=== PATIENT | male | born 1940 | race Caucasian/White ===

== ENCOUNTER 2020-07-24 20:55 | Observation (INO) | payer OTHER ==
[2020-07-24 22:47] LABS: Absolute Lymphocytes (CBC) 1.2 K/uL (0.7-4.9); Basophils % 0.6 % (0-1.3); Hematocrit 43.7 % (39.6-49.0); Lymphocytes % 20.4 % (15.3-44.8); MPV 10.2 fL (7.6-11.3); Protime INR 1.01; RBC Red Blood Cell Count 4.83 M/uL (4.33-5.43)
[2020-07-24 23:04] LABS: ALT/SGPT 33 U/L (12-78); AST/SGOT 26 U/L (15-37); Albumin 3.8 g/dL (3.4-5.0); Alkaline Phosphatase 116 U/L (45-117); BUN Blood Urea Nitrogen 31 mg/dL (7-18); Bicarbonate 28 mmol/L (21-32); Bilirubin Direct 0.2 mg/dL (0-0.2); Bilirubin Total 0.7 mg/dL (0.2-1.0); Glucose Level 114 mg/dL (74-106); Magnesium 2.3 mg/dL (1.8-2.4); NT PRO-BNP 402 pg/mL (<450); Potassium 4.4 mmol/L (3.5-5.1); Protein, Total 7.5 g/dL (6.4-8.2); Sodium Level 141 mmol/L (136-145); Troponin (Emerg Dept Use Only) < 0.02 ng/mL (0.0-0.045)
--- NOTE | 2020-07-25 00:14 | ER ---
Nurse's Notes [facility] Name: Sea Ch Age: 79 yrs Sex: Male : 1940 Arrival Date: 07/24/2020 Time: 20:56 Bed 6 Private MD: Diagnosis: Uncontrolled Hypertension;Confusion Presentation: 07/24 21:01 Chief complaint: Patient states: BP elevated above 200 today. Taking BP meds as ll1 prescribed. Denies pain, no fever. Coronavirus screen: Client denies travel out of the [place] in the last 14 days. Ebola Screen: Patient denies travel to an Ebola-affected area in the 21 days before illness onset. Initial Sepsis Screen: Does the patient meet any 2 criteria? No. Patient's initial sepsis screen is negative. Does the patient have a suspected source of infection? No. Patient's initial sepsis screen is negative. Risk Assessment: Do you want to hurt yourself or someone else? Patient reports no desire to harm self or others. Onset of symptoms was July 24, 2020. 21:01 Method Of Arrival: Ambulatory ll1 21:01 Acuity: JANIE 2 ll1 Historical: - Allergies: 21:03 No Known Allergies; ll1 - PMHx: 21:03 Hypertension; Prostate Cancer; ll1 - PSHx: 21:03 Prostatectomy; ll1 - Immunization history:: Adult Immunizations up to date. - Social history:: Smoking status: Patient denies any tobacco usage or history of. Screenin:25 Abuse screen: Denies threats or abuse. Nutritional screening: No deficits noted. wh Tuberculosis screening: No symptoms or risk factors identified. Fall Risk None identified. 21:30 VAN Screening: Arm Drift: Patient shows no arm weakness. Visual Disturbance: No visual wh disturbance noted. Aphasia: No aphasia noted. Neglect: No neglect noted. Assessment: 21:15 General: Appears in no apparent distress. Behavior is calm, cooperative. Pain: Denies wh pain. Neuro: Level of Consciousness is awake, alert, obeys commands, Oriented to person, place, time, situation, Rubber Worker are equal bilaterally Moves all extremities. Gait is steady, Speech is normal, Facial symmetry appears normal, Reports high blood pressure. Cardiovascular: Heart tones S1 S2. Respiratory: Airway is patent Respiratory effort is even, unlabored, Respiratory pattern is regular, symmetrical, Breath sounds are clear bilaterally. GI: Abdomen is flat, non-distended. : No signs and/or symptoms were reported regarding the genitourinary system. EENT: No signs and/or symptoms were reported regarding the EENT system. Derm: Skin is intact, is healthy with good turgor, Skin is pink, warm \T\ dry. normal. Musculoskeletal: Circulation, motion, and sensation intact. 21:45 Reassessment: PT is alert and oriented x4 but sometimes confuses use of words but is wh able to pass NIH scale with no deficits. 22:30 Reassessment: Patient appears in no apparent distress at this time. No changes from previously documented assessment. Patient and/or family updated on plan of care and expected duration. Pain level reassessed. Patient is alert, oriented x 3, equal unlabored respirations, skin warm/dry/pink. 23:52 Reassessment: Patient appears in no apparent distress at this time. Patient and/or wh family updated on plan of care and expected duration. Pain level reassessed. Patient is alert, oriented x 3, equal unlabored respirations, skin warm/dry/pink. 07/25 00:30 Reassessment: MD at bedside explained to PT need for admit, Pt adamant of signing out, Charge nurse notified and at bedside explaining to Pt course of action. 00:56 Reassessment: pt signed AMA form and stated he was going to go home, Dr. Brush and kenzie Arshad, RN at bedside, notified [place], spoke with [place], will send someone for wellness check. Vital Signs: 07/24 21:01 BP 215 / 97; Pulse 66; Resp 17; Temp 97.9; Pulse Ox 100% ; Weight 74.84 kg; Height 5 ll1 ft. 11 in. (180.34 cm); Pain 0/10; 21:30 BP 181 / 97; Pulse 63; Resp 18; Pulse Ox 99% on R/A; 22:30 BP 165 / 87; Pulse 56; Resp 18; Pulse Ox 100% on R/A; wh 23:30 BP 159 / 85; Pulse 68; Resp 18; Pulse Ox 98% on R/A; 07/25 00:30 BP 175 / 78; Pulse 62; Resp 18; Pulse Ox 98% on R/A; 07/24 21:01 Body Mass Index 23.01 (74.84 kg, 180.34 cm) ll1 NIH Stroke Scale Scores: 07/24 21:30 NIHSS Score: 0 ED Course: 20:56 Patient arrived in ED. bp1 21:03 Triage completed. ll1 21:03 Arm band placed on Patient placed in an exam room, on a stretcher. 1 21:09 Jeancarlos Estevez, RN is Primary Nurse. 21:12 Win Young MD is Attending Physician. 7 21:30 Patient has correct armband on for positive identification. Bed in low position. Call light in reach. Side rails up X 1. rivet machine operator on. Pulse ox on. NIBP on. 21:35 Inserted saline lock: 20 gauge in right antecubital area, using aseptic technique. Blood collected. 22:14 CT Head Brain wo Cont In Process Unspecified. EDMS 22:40 XRAY Chest (1 view) In Process Unspecified. EDMS 07/25 00:12 Tommie Brush MD is Hospitalizing Provider. [facility] 00:52 No provider procedures requiring assistance completed. IV discontinued, intact, bleeding controlled, No redness/swelling at site. Administered Medications: No medications were administered Outcome: 00:13 Decision to Hospitalize by Provider. [facility] 00:52 AMA AMA form signed 00:52 Condition: stable 00:52 Instructed on the need for admit. 01:10 Patient left the ED. NIH Stroke Scale - NIH Stroke Score Date: 07/24/2020 Time: 21:30 Total Score = 0 1a. Level of Consciousness (LOC) - 0(Alert) 1b. Level of Consciousness (LOC) (Year \T\ Age) - 0(Both) 1c. LOC Commands (Open \T\ Closes Eyes/Manager [employer]) - 0(Both) 2. Best Gaze (Lateral Gaze Paresis) - 0(Normal) 3. Visual Field Loss - 0(No visual loss) 4. Facial Palsy - 0(Normal) 5a. Left Arm: Motor (10-second hold) - 0(No drift) 5b. Right Arm: Motor (10-second hold) - 0(No drift) 6a. Left Leg: Motor (5-second hold - always test supine) - 0(No drift) 6b. Right Leg: Motor (5-second hold - always test supine) - 0(No drift) 7. Limb Ataxia (finger/nose \T\ heel/perry - test with eyes open) - 0(Absent) 8. Sensory Loss (pinprick arms/legs/face) - 0(Normal) 9. Best Language: Aphasia (description/naming/reading) - 0(No aphasia) 10. Dysarthria (speech clarity - read or repeat words) - 0(Normal) 11. Extinction and Inattention (visual/tactile/auditory/spatial/personal) - 0(No abnormality) Initials: Signatures: Dispatcher [employer] Jon Krueger, RN Jeancarlos Ewing, RN Katelyn Oconnell RN RN ll1 Ashley Solis Maurice, MD MD 7 Corrections: (The following items were deleted from the chart) 00:54 07/24 21:45 Reassessment: PT sometimes confuses use of words but is able to wh pass NIH scale with no deficits. 07/25 01:01 00:56 Reassessment: pt signed AMA form and stated he was going to go home, Dr. kenzie Brush and Jeancarlos, RN at bedside, notified [place], will send someone for wellness check em
--- NOTE | 2020-07-25 00:14 | EDPHYS ---
Physician Documentation [facility] Name: Sea Ch Age: 79 yrs Sex: Male : 1940 Arrival Date: 07/24/2020 Time: 20:56 Bed 6 Private MD: ED Physician Win Young HPI: 07/24 22:13 This 79 yrs old Male presents to ER via Ambulatory with complaints of High mh7 Blood Pressure. 22:13 The patient has elevated blood pressure and discovered this at home, with a home mh7 device. Onset: The symptoms/episode began/occurred today, at an unknown time. Modifying factors: The symptoms are aggravated by nothing, The symptoms are alleviated by nothing. 22:14 Associated signs and symptoms: Pertinent negatives: chest pain, dizziness, dyspnea, mh7 headache, lightheadedness, nausea, visual changes, vomiting, weakness. Severity of symptoms: At its worst the blood pressure was 220 mm Hg, in the emergency department the blood pressure is improved, moderately, 181 mm Hg. The patient has experienced similar episodes in the past, multiple times. Historical: - Allergies: 21:03 No Known Allergies; ll1 - PMHx: 21:03 Hypertension; Prostate Cancer; ll1 - PSHx: 21:03 Prostatectomy; ll1 - Immunization history:: Adult Immunizations up to date. - Social history:: Smoking status: Patient denies any tobacco usage or history of. ROS: 22:14 Constitutional: Negative for fever, chills, and weight loss, Eyes: Negative for injury, mh7 pain, redness, and discharge, ENT: Negative for injury, pain, and discharge, Neck: Negative for injury, pain, and swelling, Cardiovascular: Negative for chest pain, palpitations, and edema, Respiratory: Negative for shortness of breath, cough, wheezing, and pleuritic chest pain, Abdomen/GI: Negative for abdominal pain, nausea, vomiting, diarrhea, and constipation, Back: Negative for injury and pain, : Negative for injury, bleeding, discharge, and swelling, MS/Extremity: Negative for injury and deformity, Skin: Negative for injury, rash, and discoloration, Neuro: Negative for headache, weakness, numbness, tingling, and seizure, Psych: Negative for depression, anxiety, suicide ideation, homicidal ideation, and hallucinations, Allergy/Immunology: Negative for hives, rash, and allergies, Endocrine: Negative for neck swelling, polydipsia, polyuria, polyphagia, and marked weight changes, Hematologic/Lymphatic: Negative for swollen nodes, abnormal bleeding, and unusual bruising. Exam: 22:55 Constitutional: This is a well developed, well nourished patient who is awake, alert, mh7 and in no acute distress. Head/Face: Normocephalic, atraumatic. Eyes: Pupils equal round and reactive to light, extra-ocular motions intact. Lids and lashes normal. Conjunctiva and sclera are non-icteric and not injected. Cornea within normal limits. Periorbital areas with no swelling, redness, or edema. ENT: Nares patent. No nasal discharge, no septal abnormalities noted. Tympanic membranes are normal and external auditory canals are clear. Oropharynx with no redness, swelling, or masses, exudates, or evidence of obstruction, uvula midline. Mucous membranes moist. Neck: Trachea midline, no thyromegaly or masses palpated, and no cervical lymphadenopathy. Supple, full range of motion without nuchal rigidity, or vertebral point tenderness. No Meningismus. Chest/axilla: Normal chest wall appearance and motion. Nontender with no deformity. No lesions are appreciated. Cardiovascular: Regular rate and rhythm with a normal S1 and S2. No gallops, murmurs, or rubs. Normal PMI, no JVD. No pulse deficits. Respiratory: Lungs have equal breath sounds bilaterally, clear to auscultation and percussion. No rales, rhonchi or wheezes noted. No increased work of breathing, no retractions or nasal flaring. Abdomen/GI: Soft, non-tender, with normal bowel sounds. No distension or tympany. No guarding or rebound. No evidence of tenderness throughout. Back: No spinal tenderness. No costovertebral tenderness. Full range of motion. Skin: Warm, dry with normal turgor. Normal color with no rashes, no lesions, and no evidence of cellulitis. MS/ Extremity: Pulses equal, no cyanosis. Neurovascular intact. Full, normal range of motion. 22:55 Psych: Awake, alert, with orientation to person, place and time. Behavior, mood, and affect are within normal limits. 07/25 00:06 Neuro: Orientation: to person, situation, Mentation: able to follow commands, confused, 7 Memory: appropriate for stated age, Cranial nerves: grossly normal, Cerebellar function: is grossly normal, Motor: is normal, Sensation: is normal, Gait: not tested. seizure activity, is not displayed by the patient, Abnormal movements: there are no abnormal movements. Vital Signs: 07/24 21:01 BP 215 / 97; Pulse 66; Resp 17; Temp 97.9; Pulse Ox 100% ; Weight 74.84 kg; Height 5 ll1 ft. 11 in. (180.34 cm); Pain 0/10; 21:30 BP 181 / 97; Pulse 63; Resp 18; Pulse Ox 99% on R/A; 22:30 BP 165 / 87; Pulse 56; Resp 18; Pulse Ox 100% on R/A; 23:30 BP 159 / 85; Pulse 68; Resp 18; Pulse Ox 98% on R/A; 07/25 00:30 BP 175 / 78; Pulse 62; Resp 18; Pulse Ox 98% on R/A; 07/24 21:01 Body Mass Index 23.01 (74.84 kg, 180.34 cm) ll1 NIH Stroke Scale Scores: 07/24 21:30 NIHSS Score: 0 MDM: 07/25 00:07 Differential diagnosis: hypertensive crisis, Malignant HTN, CVA, intracerebral mh7 hemorrhage, Hypertensive encephalopathy. 00:09 Data reviewed: vital signs, nurses notes, old medical records, lab test result(s), [facility] cardiac enzymes, CBC, electrolytes, urinalysis, EKG, radiologic studies, CT scan, plain films. Data interpreted: Pulse oximetry: on room air is 100 %. Interpretation: normal. 00:11 Counseling: I had a detailed discussion with the patient and/or guardian regarding: the [facility] historical points, exam findings, and any diagnostic results supporting the discharge/admit diagnosis, the presence of at least one elevated blood pressure reading (>120/80) during this emergency department visit, lab results, radiology results, the need for further work-up and treatment in the hospital. Response to treatment: the patient's symptoms have mildly improved after treatment. 00:13 Patient medically screened. [facility] 07/24 21:43 Order name: Basic Metabolic Panel; Complete Time: 23:12 [facility] 07/24 21:43 Order name: CBC with Diff; Complete Time: 23:12 [facility] 07/24 21:43 Order name: LFT's; Complete Time: 23:12 [facility] 07/24 21:43 Order name: Magnesium; Complete Time: 23:12 [facility] 07/24 21:43 Order name: NT PRO-BNP; Complete Time: 23:12 [facility] 07/24 21:43 Order name: PT-INR; Complete Time: 23:12 [facility] 07/24 21:43 Order name: Troponin (emerg Dept Use Only); Complete Time: 23:12 [facility] 07/24 21:43 Order name: XRAY Chest (1 view) [facility] 07/24 21:43 Order name: EKG; Complete Time: 21:52 [facility] 07/24 21:43 Order name: Cardiac monitoring; Complete Time: 22:29 [facility] 07/24 21:43 Order name: CT Head Brain wo Cont [facility] 07/24 21:43 Order name: ETOH Level; Complete Time: 23:12 [facility] 07/24 23:55 Order name: Urine Dipstick--Ancillary (enter results) [facility] 07/25 00:08 Order name: UDS [facility] 07/24 21:43 Order name: EKG - Nurse/Tech; Complete Time: 22:29 [facility] 07/24 21:43 Order name: IV Saline Lock; Complete Time: 22:29 [facility] 07/24 21:43 Order name: Labs collected and sent; Complete Time: 22:29 [facility] 07/24 21:43 Order name: O2 Per Protocol; Complete Time: 22:29 [facility] 07/24 21:43 Order name: O2 Sat Monitoring; Complete Time: 22:29 [facility] 07/24 21:43 Order name: Urine Dipstick-Ancillary (obtain specimen); Complete Time: 23:55 [facility] Administered Medications: No medications were administered Disposition: 07/25/20 00:13 Hospitalization ordered by Tommie Brush for Observation. Preliminary diagnosis are Uncontrolled Hypertension, Confusion. - Bed requested for [facility] ER HOLD. - Status is Observation. em - Condition is Stable. - Problem is new. - Symptoms have improved. NIH Stroke Scale - NIH Stroke Score Date: 07/24/2020 Time: 21:30 Total Score = 0 1a. Level of Consciousness (LOC) - 0(Alert) 1b. Level of Consciousness (LOC) (Year \T\ Age) - 0(Both) 1c. LOC Commands (Open \T\ Closes Eyes/Radiological Equipment Specialist) - 0(Both) 2. Best Gaze (Lateral Gaze Paresis) - 0(Normal) 3. Visual Field Loss - 0(No visual loss) 4. Facial Palsy - 0(Normal) 5a. Left Arm: Motor (10-second hold) - 0(No drift) 5b. Right Arm: Motor (10-second hold) - 0(No drift) 6a. Left Leg: Motor (5-second hold - always test supine) - 0(No drift) 6b. Right Leg: Motor (5-second hold - always test supine) - 0(No drift) 7. Limb Ataxia (finger/nose \T\ heel/perry - test with eyes open) - 0(Absent) 8. Sensory Loss (pinprick arms/legs/face) - 0(Normal) 9. Best Language: Aphasia (description/naming/reading) - 0(No aphasia) 10. Dysarthria (speech clarity - read or repeat words) - 0(Normal) 11. Extinction and Inattention (visual/tactile/auditory/spatial/personal) - 0(No abnormality) Initials: Signatures: Dispatcher [employer] EDNadia Fernandez RN RN Jon Vital RN RN em Katelyn Tyler RN RN ll Win Young MD MD mh7 Corrections: (The following items were deleted from the chart) 00:21 00:13 Hospitalization Ordered by Tommie Brush MD for Observation. Preliminary mw diagnosis is Uncontrolled Hypertension; Confusion. Bed requested for Telemetry/MedSurg (observation). Status is Observation. Condition is Stable. Problem is new. Symptoms have improved. mh7 01:10 00:21 07/25/2020 00:13 Hospitalization Ordered by Tommie Brush MD for em Observation. Preliminary diagnosis is Uncontrolled Hypertension; Confusion. Bed requested for [facility] ER HOLD. Status is Observation. Condition is Stable. Problem is new. Symptoms have improved. mw
[2020-07-25] MEDS ORDERED: MORPHINE 2 MG/ML SYR IV PRN (00:21)
[2020-07-25] MEDS ORDERED: ACETAMINOPHEN 500 MG TAB PO PRN (00:21)
[2020-07-25] MEDS ORDERED: ONDANSETRON 4 MG/2 ML VIAL IV PRN (00:21)
[2020-07-25] MEDS ORDERED: HYDRALAZINE HCL 20 MG/ML VIAL IV PRN (00:24)
--- NOTE | 2020-07-25 00:59 | P.CNS ---
Date of Consult: 07/25/20 ER admission consult 79-year-old male with past medical history hypertension and prostate cancer came to ER with elevated blood pressure. I could not get any history from him and he was adamant that he does not want to be in the hospital. Most of the history is obtained from the chart review and also talking to the ER physician. His blood pressure was elevated and the workup including CT of the brain was negative for any acute changes. Discussed the patient about the need for admission and further monitoring. The patient was adamant that he wanted go home. He wanted to sign out AMA, that was a concern that the patient is confused. I tried discussing with him about the need for staying in the hospital and the need for further monitoring and the dangers of leaving the hospital with high blood pressure. but the patient is adamant that he is going and he walked out. Discussed in detail with the charge nurse and recommended to call PD for a wellness check .
[2020-07-25 01:17] LABS: Barbiturates NEGATIVE (NEGATIVE); Benzodiazepines NEGATIVE (NEGATIVE); Cocaine NEGATIVE (NEGATIVE); METHAMPHETAM NEGATIVE (NEGATIVE); Methadone NEGATIVE (NEGATIVE); Opiates NEGATIVE (NEGATIVE); Phencyclidine NEGATIVE (NEGATIVE); THC Cannibis NEGATIVE (NEGATIVE)
[2020-07-25 01:58] VITALS: TEMP 97.9
[2020-07-25 02:02] VITALS: O2SAT 98
[2020-07-25 02:03] VITALS: BP 175/78
[2020-07-25 06:11] LABS: Urine Blood NEGATIVE (NEG); Urine Glucose NEGATIVE (NEG); Urine Protein NEGATIVE (NEG)
--- NOTE | 2020-07-25 06:38 | RAD REPORT ---
EXAM DESCRIPTION: Horacio Single View07/24/2020 10:41 pm CLINICAL HISTORY: Hypertension COMPARISON: 2017 FINDINGS: Nodular opacities which overlie the lung bases likely nipple shadows. Lungs mildly hyperae rated The lungs appear clear of acute infiltrate. The heart is normal size IMPRESSION: No acute abnormalities displayed
--- NOTE | 2020-07-25 08:18 | EKG ---
Test Date: 2020-07-24 Test Time: 22:04:17 Visitor Services Assistant: THANG MEASUREMENT RESULTS: Intervals: Rate: 59 CO: 104 QRSD: 82 QT: 402 QTc: 397 [place]: P: 22 CO: 104 QRS: -49 T: 18 INTERPRETIVE STATEMENTS: Sinus bradycardia with sinus arrhythmia with short CO Left axis deviation Abnormal ECG Compared to ECG 11/01/2016 09:10:21 Short CO interval now present Electronically Signed On 07-25-20 08:17:35 DIRECT SALES CONSULTANT by Hollis Hendrickson
[2020-07-25] MEDS ORDERED: ENOXAPARIN 40 MG/0.4 ML SQ SCH (09:00)
--- NOTE | 2020-07-25 11:20 | RAD REPORT ---
EXAM DESCRIPTION: CT - Head Brain Wo Cont - 07/25/2020 4:50 am CLINICAL HISTORY: Confusion. COMPARISON: None. TECHNIQUE: CT scan of the brain was performed without IV contrast. This exam was performed accordi ng to our departmental dose-optimization program, which includes automated exposure control, adjustme nt of the mA and/or kV according to patient size and/or use of iterative reconstruction technique. FINDINGS: The ventricles, cisterns, and sulci are age-appropriate. No evidence of acute infarction, intracranial hemorrhage, extra-axial fluid collection, or midline shift. No air-fluid levels are seen in the paranasal sinuses to suggest acute sinusitis. No depressed skull fracture. IMPRESSION: No acute intracranial findings. Electronically signed by: Lucho Shin MD 07/24/2020 10:25 PM AUTOMOBILE SERVICE STATION MECHANIC Due to temporary technical issues with the PACS/Fluency reporting system, reports are being signed by the in house radiologist without review as a courtesy to ensure prompt reporting. The interpreting r adiologist is fully responsible for the content of the report.
== END 2020-07-25 01:10 | disposition left against medical advice (07) ==
LOC: ER 20:55 → ERHOLD 07-25 00:27
PROVIDERS: ADMIT Family Medicine; ATTEND Internal Medicine
DX: I10 Essential (primary) hypertension (principal); R41.0 Disorientation, unspecified; Z85.46 Personal history of malignant neoplasm of prostate; Z90.79 Acquired absence of other genital organ(s); Z53.29 Procedure and treatment not carried out because of patient's decision for other reasons
CPT/HCPCS: 36415; 70450; 71045; 80048; 80076; 80307; 80320; 81003; 83735; 83880; 84484; 85025; 85610; 93005; 99284; G0378

== ENCOUNTER 2020-11-26 08:39 | Emergency (ER) | payer OTHER, MEDICARE ==
[2020-11-26] MEDS ORDERED: AMOX/K CLAV 875 MG TAB ONE (09:40)
[2020-11-26] MEDS ORDERED: TETANUS & DIPHTHERIA TOX,ADULT 0.5 ML VIAL ONE (09:41)
--- NOTE | 2020-11-26 10:18 | ER ---
Nurse's Notes [facility] Name: Sea Ch Age: 80 yrs Sex: Male : 1940 Arrival Date: 11/26/2020 Time: 08:42 Bed 19 Private MD: Diagnosis: Puncture wound without foreign body of left hand;Bitten by cat Presentation: 11/26 09:00 Chief complaint: Patient states: Cat bite to L hand 30 minutes ago. Coronavirus screen: ss Client denies travel out of the [place] in the last 14 days. Ebola Screen: Patient denies exposure to infectious person. Patient denies travel to an Ebola-affected area in the 21 days before illness onset. Initial Sepsis Screen: Does the patient meet any 2 criteria? No. Patient's initial sepsis screen is negative. Does the patient have a suspected source of infection? No. Patient's initial sepsis screen is negative. Risk Assessment: Do you want to hurt yourself or someone else? Patient reports no desire to harm self or others. Onset of symptoms was November 26, 2020. 09:00 Method Of Arrival: Ambulatory ss 09:00 Acuity: JANIE 4 ss Historical: - Allergies: 09:06 No Known Allergies; ss - PMHx: 09:06 Hypertension; Prostate Cancer; ss - PSHx: 09:06 Prostatectomy; ss - Immunization history:: Last tetanus immunization: up to date. - Social history:: Smoking status: Patient denies any tobacco usage or history of. Screenin:07 Abuse screen: Denies threats or abuse. Denies injuries from another. Nutritional tr6 screening: No deficits noted. Tuberculosis screening: No symptoms or risk factors identified. Fall Risk None identified. Assessment: 10:06 General: Appears in no apparent distress. Behavior is calm, cooperative, appropriate tr6 for age. Pain: Complains of pain in left palm. Neuro: No deficits noted. Cardiovascular: No deficits noted. Respiratory: No deficits noted. GI: No deficits noted. : No deficits noted. EENT: No deficits noted. Derm: No deficits noted. Musculoskeletal: No deficits noted. Injury Description: Bite sustained to left palm caused by a cat, is from animal. Vital Signs: 09:00 BP 185 / 104; Pulse 59; Resp 16; Temp 97.5(TE); Pulse Ox 97% on R/A; Weight 72.57 kg; Height 6 ft. 0 in. (182.88 cm); Pain 2/10; 10:00 BP 151 / 82; Pulse 82; Resp 18; Pulse Ox 98% on R/A; tr6 09:00 Body Mass Index 21.70 (72.57 kg, 182.88 cm) ED Course: 08:42 Patient arrived in ED. mr 09:05 Triage completed. ss 09:05 Rc Romero NP is PHCP. pm1 09:05 Will Tang MD is Attending Physician. pm1 09:05 Aria Kasper RN is Primary Nurse. tr6 09:06 Arm band placed on right wrist. ss 09:57 Hand Left 3 View XRAY In Process Unspecified. EDMS 10:07 Patient has correct armband on for positive identification. Fall risk band placed. Bed tr6 in low position. Call light in reach. Side rails up X 1. 10:07 No provider procedures requiring assistance completed. tr6 10:15 Stiven Bran MD is Referral Physician. pm1 10:34 Patient did not have IV access during this emergency room visit. tr6 Administered Medications: 09:27 Drug: Augmentin (Amoxicillin-Clavulanate) 875 mg Route: PO; tr6 09:28 Drug: Tetanus-Diphtheria Toxoid Adult 0.5 ml {Ore Charger: [employer]. Exp: tr6 11/26/2021. Lot #: [id number]. } Route: IM; Site: left deltoid; Outcome: 10:17 Discharge ordered by . pm1 10:34 Discharged to home ambulatory. tr6 10:34 Condition: good 10:34 Discharge instructions given to patient, Instructed on discharge instructions, follow up and referral plans. safety practices, wound care, Demonstrated understanding of instructions, follow-up care, medications, Prescriptions given X 1. 10:35 Patient left the ED. tr6 Signatures: Dispatcher [employer] HANH FerrerLi Shelby, LALO RN Rc Romero, ALLAN VEGETABLE GRADER pm1 Aria Kasper RN RN tr6
--- NOTE | 2020-11-26 10:18 | EDPHYS ---
Physician Documentation [facility] Name: Sea Ch Age: 80 yrs Sex: Male : 1940 Arrival Date: 11/26/2020 Time: 08:42 Bed 19 Private MD: ED Physician Will Tang HPI: 11/26 09:13 This 80 yrs old Male presents to ER via Ambulatory with complaints of Hand pm1 Injury. 09:13 The patient or guardian reports a bite, cat. The complaints affect the left hand. pm1 Context: The problem was sustained at home, resulted from cat bite. Onset: The symptoms/episode began/occurred 1 hour(s) ago. Modifying factors: The symptoms are alleviated by pressure to area, the symptoms are aggravated by nothing. Associated signs and symptoms: Pertinent negatives: cyanosis distally, decreased sensation distally, fever, numbness distally, tingling distally. Severity of symptoms: in the emergency department the symptoms have improved, a " 0" out of "10". The patient has not experienced similar symptoms in the past. Cat was biting a blanket and his hand was underneath it. Two bite rosario to the palmar area of left hand. Historical: - Allergies: 09:06 No Known Allergies; ss - PMHx: 09:06 Hypertension; Prostate Cancer; ss - PSHx: 09:06 Prostatectomy; ss - Immunization history:: Last tetanus immunization: up to date. - Social history:: Smoking status: Patient denies any tobacco usage or history of. ROS: 09:16 Constitutional: Negative for fever, chills, and weight loss, Cardiovascular: Negative pm1 for chest pain, palpitations, and edema, Respiratory: Negative for shortness of breath, cough, wheezing, and pleuritic chest pain, Abdomen/GI: Negative for abdominal pain, nausea, vomiting, diarrhea, and constipation. 09:16 Neuro: Negative for headache, weakness, numbness, tingling, and seizure. 09:16 MS/extremity: Positive for puncture, of the left hand, Negative for pain. 09:16 Skin: Positive for puncture, of the left hand. 09:16 All other systems are negative. Exam: 09:16 Constitutional: This is a well developed, well nourished patient who is awake, alert, pm1 and in no acute distress. Head/Face: Normocephalic, atraumatic. 09:16 Cardiovascular: Exam negative for acute changes, Rate: normal, Rhythm: regular, Pulses: no pulse deficits are appreciated. 09:16 Respiratory: Exam negative for acute changes, respiratory distress, shortness of breath. 09:16 Skin: Appearance: normal except for affected area, injury, puncture(s), of the left thenar eminence, 2 small puncture wounds without any signs of cellulitis. No bleeding, redness, tenderness to left hand. 09:16 Neuro: Exam negative for acute changes, Orientation: is normal, Mentation: is normal, Motor: is normal, moves all fours, patient with from intact to left hand and fingers, Sensation: is normal, no obvious gross deficits, Gait: is steady, at a normal pace, without difficulty. Vital Signs: 09:00 BP 185 / 104; Pulse 59; Resp 16; Temp 97.5(TE); Pulse Ox 97% on R/A; Weight 72.57 kg; ss Height 6 ft. 0 in. (182.88 cm); Pain 2/10; 10:00 BP 151 / 82; Pulse 82; Resp 18; Pulse Ox 98% on R/A; tr6 09:00 Body Mass Index 21.70 (72.57 kg, 182.88 cm) ss MDM: 09:05 Patient medically screened. pm1 10:14 Data reviewed: vital signs. Data interpreted: Pulse oximetry: on room air is 98 %. pm1 Interpretation: normal. Counseling: I had a detailed discussion with the patient and/or guardian regarding: the historical points, exam findings, and any diagnostic results supporting the discharge/admit diagnosis, radiology results, the need for outpatient follow up, a hand specialist, to return to the emergency department if symptoms worsen or persist or if there are any questions or concerns that arise at home. 11/26 09:13 Order name: Hand Left 3 View XRAY pm1 11/26 09:13 Order name: Wound Care; Complete Time: 09:15 pm1 Administered Medications: 09:27 Drug: Augmentin (Amoxicillin-Clavulanate) 875 mg Route: PO; tr6 09:28 Drug: Tetanus-Diphtheria Toxoid Adult 0.5 ml {Purchasing Coordinator: [employer]. Exp: tr6 11/26/2021. Lot #: [id number]. } Route: IM; Site: left deltoid; Disposition: 11/26/20 10:17 Discharged to Home. Impression: Puncture wound without foreign body of left hand, Bitten by cat. - Condition is Stable. - Discharge Instructions: Puncture Wound, Animal Bite. - Prescriptions for Augmentin 875- 125 mg Oral Tablet - take 1 tablet by ORAL route every 12 hours for 10 days; 20 tablet. - Medication Reconciliation Form, Thank You Letter, Antibiotic Education, Prescription Opioid Use form. - Follow up: Stiven Bran MD; When: 2 - 3 days; Reason: Recheck today's complaints, Continuance of care, Re-evaluation by your physician. - Problem is new. - Symptoms have improved. Addendum: 11/29/2020 07:32 Co-signature as Attending Physician, Will Tang MD I agree with the assessment and c che plan of care. Signatures: Dispatcher [employer] EDWill Lacey MD MD cha Smirch, Shelby, RN RN Rc Staley NP ABRASIVE BAND WINDER pm1 Aria Kasper RN RN tr6 Corrections: (The following items were deleted from the chart) 11/26 10:35 10:17 11/26/2020 10:17 Discharged to Home. Impression: Puncture wound without foreign tr6 body of left hand; Bitten by cat. Condition is Stable. Forms are Medication Reconciliation Form, Thank You Letter, Antibiotic Education, Prescription Opioid Use. Follow up: Stiven Bran; When: 2 - 3 days; Reason: Recheck today's complaints, Continuance of care, Re-evaluation by your physician. Problem is new. Symptoms have improved. pm1
[2020-11-26 10:40] VITALS: TEMP 97.5
[2020-11-26 10:42] VITALS: BP 151/82; O2SAT 98
--- NOTE | 2020-11-26 11:47 | RAD REPORT ---
EXAM DESCRIPTION: RAD - Hand Left 3 View - 11/26/2020 9:57 am CLINICAL HISTORY: ANIMAL BITE COMPARISON: <Comparisons> FINDINGS: Soft tissue swelling is present. No fracture or radiopaque foreign body.
== END 2020-11-26 10:35 | disposition home or self-care (01) ==
LOC: ER 08:39
DX: S61.432A Puncture wound without foreign body of left hand, initial encounter (principal); W55.01XA Bitten by cat, initial encounter; Z23 Encounter for immunization; Z85.46 Personal history of malignant neoplasm of prostate; I10 Essential (primary) hypertension
CPT/HCPCS: 90471; 90714; 99283

== ENCOUNTER 2023-04-22 11:55 | Emergency (ER) | payer OTHER ==
[2023-04-22] MEDS ORDERED: NA CHLORIDE 0.9% 1,000 ML ONE ×2 (12:32→15:44)
[2023-04-22] MEDS ORDERED: ONDANSETRON 4 MG/2 ML VIAL ONE (12:32)
[2023-04-22] MEDS ORDERED: FAMOTIDINE 20 MG/2 ML VIAL IV ONE (12:32)
[2023-04-22] MEDS ORDERED: MORPHINE 4 MG/ML SYR ONE (12:32)
[2023-04-22 12:43] LABS: Absolute Lymphocytes (CBC) 1.3 K/uL (0.7-4.9); Hematocrit 46.8 % (39.6-49.0); Lymphocytes % 19.7 % (15.3-44.8); MCV 91.2 fL (80-100); MPV 9.4 fL (7.6-11.3); Platelets 148 thou/uL (152-406); RBC Red Blood Cell Count 5.13 M/uL (4.33-5.43)
[2023-04-22 13:00] LABS: Specific Gravity 1.026 (1.005-1.030); Urine Bacteria None Seen /HPF (<20); Urine Bilirubin NEGATIVE (Negative); Urine Blood 3+ (OVER) (Negative); Urine Clarity Extremely Turbid (Clear); Urine Color Light-Orange (Yellow); Urine Glucose 2+ (Negative); Urine Mucus 4+ /HPF (None Seen); Urine Protein 2+ (Negative); Urine RBC >50 /HPF (None Seen); Urine Urobilinogen Normal (Normal); Urine WBC Clump Rare /HPF (None Seen); Urine pH 5.5 (5.0-7.0)
[2023-04-22 13:03] LABS: Albumin 3.7 g/dL (3.4-5.0); Bilirubin Total 0.9 mg/dL (0.2-1.0); Potassium 3.6 mEq/L (3.5-5.1); Protein, Total 7.5 g/dL (6.4-8.2)
--- NOTE | 2023-04-22 13:59 | RAD REPORT ---
EXAM DESCRIPTION: CT - Abdomen Pelvis W Contrast - 04/22/2023 1:21 pm CLINICAL HISTORY: Abd pain;Flank pain COMPARISON: Stone Protocol dated 08/23/2017 TECHNIQUE: Thin cut axial CT imaging of the abdomen and pelvis was performed following intravenous a dministration of 100 mL Isovue 300. Multiplanar reformats were generated and reviewed. All CT scans are performed using dose optimization technique as appropriate and may include automated exposure control or mA/KV adjustment according to patient size. FINDINGS: No suspicious findings in the lung bases. The liver, spleen, and adrenal glands show no suspicious findings. Gallbladder and biliary tree are a lso without suspicious finding. Symmetric renal function is seen with no suspicious renal mass. Mild right hydroureteronephrosis. 5 m illimeter right distal ureter calculus see axial image 71/101. Segmental fusiform dilation and tortuosity of the proximal celiac axis, measuring 11 millimeter in ca liber. Small linear filling defects are seen within, which may relate to small dissection flaps. 17 x 12 millimeter pancreatic head/uncinate process ovoid cystic lesion, may be related to the pancre atic parenchyma or a choledochal cyst, not well characterized. No dilated bowel loops or bowel wall thickening. Colonic diverticulosis. No free air, free fluid or i nflammatory stranding. No suspicious mass or bulky lymphadenopathy. Right larger than left inguinal h ernias containing fat. The urinary bladder is suboptimally distended, without significant finding. No suspicious bony findings. IMPRESSION: Mild right hydroureteronephrosis with a 5 millimeter right distal ureter calculus. Segmental fusiform dilation and possible dissection with no evidence of thrombosis or differential en hancement involving the proximal celiac axis. Some caliber prominence was noted along the same segmen t on a prior abdomen CT in 2018, although direct comparison is limited given differences in imaging t echnique and additional advantage of IV contrast on the current exam. Pancreatic head/ uncinate process 17 millimeters cystic lesion, may be of pancreatic or choledochal o rigin. This can be further evaluated by dedicated pancreatic protocol CT or MRI on outpatient basis. Colonic diverticulosis. The findings were communicated to Luke Vázquez on 04/22/2023 at 13:53 hours.
[2023-04-22] MEDS ORDERED: HYDRALAZINE HCL 20 MG/ML VIAL ONE (14:02)
--- NOTE | 2023-04-22 14:33 | ER ---
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 Coronavirus screen: Client denies travel out of the [place] in the last 14 days. At this time, the client does not indicate any symptoms associated with coronavirus-19. Ebola Screen: No symptoms or risks identified at this time. Initial Sepsis Screen: Does the patient meet any 2 criteria? No. Patient's initial sepsis screen is negative. Does the patient have a suspected source of infection? No. Patient's initial sepsis screen is negative. Risk Assessment: Do you want to hurt yourself or someone else? Patient reports no desire to harm self or others. Onset of symptoms was April 22, 2023. 12:01 Method Of Arrival: Wheelchair os 12:01 Acuity: JANIE 3 os Triage Assessment: 12:04 General: Appears uncomfortable, Behavior is calm, cooperative, appropriate for age. os Pain: Complains of pain in anterior aspect of right lateral abdomen, posterior aspect of right lateral abdomen and right upper quadrant Pain at worst was 6 out of 10 on a pain scale. Neuro: No deficits noted. Historical: - Allergies: 12:08 No Known Allergies; iw - PMHx: 13:52 Hypertensive disorder; kc6 - PSHx: 13:52 None; kc6 - Immunization history:: Adult Immunizations not up to date. - Social history:: Smoking status: Patient denies any tobacco usage or history of. Screenin:12 Abuse screen: Denies threats or abuse. Nutritional screening: No deficits noted. ap3 Tuberculosis screening: No symptoms or risk factors identified. 12:36 [facility] ED Fall Risk Assessment (Adult) History of falling in the last 3 months, kc6 including since admission No falls in past 3 months (0 pts) Confusion or Disorientation No (0 pts) Intoxicated or Sedated No (0 pts) Impaired Gait No (0 pts) Mobility Assist Device Used No (0 pt) Altered Elimination No (0 pt) Score/Fall Risk Level 0 - 2 = Low Risk. Assessment: 12:36 General: Appears in no apparent distress. uncomfortable, Behavior is calm, cooperative, kc6 appropriate for age. Pain: Complains of pain in right upper quadrant and right lower quadrant Pain does not radiate. Pain currently is 5 out of 10 on a pain scale. Neuro: Level of Consciousness is awake, alert, obeys commands, Oriented to person, place, time, situation, Appropriate for age. Cardiovascular: Capillary refill < 3 seconds. Respiratory: Airway is patent Trachea midline Respiratory effort is even, unlabored, Respiratory pattern is regular, symmetrical. GI: Abdomen is round non-distended, Bowel sounds present X 4 quads. Abd is soft X 4 quads Abdomen is tender to palpation in right upper quadrant and right lower quadrant Reports nausea, vomiting, Patient currently denies diarrhea. : No signs and/or symptoms were reported regarding the genitourinary system. EENT: No signs and/or symptoms were reported regarding the EENT system. Derm: No signs and/or symptoms reported regarding the dermatologic system. Skin is intact, is healthy with good turgor, Skin is pink, warm \T\ dry. Musculoskeletal: No signs and/or symptoms reported regarding the musculoskeletal system. Circulation, motion, and sensation intact. Capillary refill < 3 seconds, Range of motion: intact in all extremities. 13:13 Reassessment: KARLA Ramos notified of pt blood pressure 217/102. verbal orders received kc6 for pt to take his home metoprolol, 50mg. pt denies chest pain or sob at this time. 13:36 Reassessment: Patient appears in no apparent distress at this time. No changes from kc6 previously documented assessment. Patient and/or family updated on plan of care and expected duration. Pain level reassessed. Patient is alert, oriented x 3, equal unlabored respirations, skin warm/dry/pink. 14:36 Reassessment: Patient appears in no apparent distress at this time. No changes from kc6 previously documented assessment. Patient and/or family updated on plan of care and expected duration. Pain level reassessed. Patient is alert, oriented x 3, equal unlabored respirations, skin warm/dry/pink. 15:36 Reassessment: Patient appears in no apparent distress at this time. No changes from kc6 previously documented assessment. Patient and/or family updated on plan of care and expected duration. Pain level reassessed. Patient is alert, oriented x 3, equal unlabored respirations, skin warm/dry/pink. 16:36 Reassessment: Patient appears in no apparent distress at this time. No changes from kc6 previously documented assessment. Patient and/or family updated on plan of care and expected duration. Pain level reassessed. Patient is alert, oriented x 3, equal unlabored respirations, skin warm/dry/pink. Vital Signs: 12:01 BP 186 / 90; Pulse 53; Resp 18; Temp 98.4; Pulse Ox 100% ; Weight 77.11 kg; os 12:56 BP 210 / 97; Pulse 56; Resp 16 S; Pulse Ox 100% on R/A; Pain 5/10; kc6 13:14 BP 217 / 102; Pulse 56; Resp 17 S; Pulse Ox 100% on R/A; kc6 13:44 BP 190 / 85; Pulse 63; Resp 18 S; Pulse Ox 100% on R/A; kc6 14:11 BP 159 / 76; Pulse 82; Resp 16 S; Pulse Ox 100% on R/A; kc6 12:56 Pain Scale: Adult kc6 ED Course: 11:59 Patient arrived in ED. mr 11:59 [facility] Carlson [facility]C [facility] sb4 11:59 Luke Vázquez MD is Attending Physician. sb4 12:04 Triage completed. os 12:11 Arm band placed on right wrist. ap3 12:36 Annika Lewis, LALO is Primary Nurse. kc6 12:37 Patient has correct armband on for positive identification. Placed in gown. Bed in low kc6 position. Call light in reach. Side rails up X2. Adult w/ patient. Client placed on continuous cardiac and pulse oximetry monitoring. NIBP monitoring applied. 12:37 Patient maintains SpO2 saturation greater than 95% on room air. kc6 12:39 Inserted saline lock: 22 gauge in left antecubital area, using aseptic technique. Blood sm8 collected. 12:39 Missed attempt(s): 22 gauge in right antecubital area. Bleeding controlled, band aid sm8 applied, catheter tip intact. 12:50 Urinalysis w/ reflexes Sent. kc6 13:23 CT Abd/Pelvis - IV Contrast Only In Process Unspecified. EDMS 16:27 attempted to contact ems to transfer pt to [facility], call went straight bd to voice mail. 17:15 No provider procedures requiring assistance completed. Patient transferred, IV remains kc6 in place. Administered Medications: 12:50 Drug: NS 0.9% IV 1000 ml IV at 1 bolus Per protocol; 1000 mL bolus Route: IV; Rate: 1 kc6 bolus; Site: left antecubital; 14:11 Follow up: Response: No adverse reaction; IV Status: Completed infusion; IV Intake: kc6 1000ml 12:50 Drug: Famotidine IVP 20 mg IVP once; dilute with 10 mL 0.9% NaCl; give over 2 minutes kc6 Route: IVP; Site: left antecubital; 14:11 Follow up: Response: No adverse reaction; Pain is decreased kc6 12:50 Drug: Ondansetron IVP 4 mg IVP once; over 2 minutes Route: IVP; Site: left antecubital; kc6 14:11 Follow up: Response: No adverse reaction; Nausea is decreased; Vomiting decreased kc6 12:50 Drug: morphine IVP or IV 4 mg IVP once over 4 mins Route: IVP; Infused Over: 4 mins; kc6 Site: left antecubital; 14:11 Follow up: Response: No adverse reaction; Pain is decreased; RASS: Alert and Calm (0) kc6 13:52 Drug: hydrALAZINE IVP 10 mg IVP once Route: IVP; Site: left antecubital; kc6 14:11 Follow up: Response: No adverse reaction; Blood pressure is lowered kc6 15:33 Drug: NS 0.9% IV 1000 ml IV at 1 bolus Per protocol; 1000 mL bolus Route: IV; Rate: 1 nj1 bolus; Site: right antecubital; 17:15 Follow up: Response: No adverse reaction; IV Status: Completed infusion; IV Intake: kc6 1000ml Medication: 17:16 VIS not applicable for this client. kc6 Intake: 14:11 IV: 1000ml; Total: 1000ml. kc6 17:15 IV: 1000ml; Total: 2000ml. kc6 Outcome: 14:32 ER care complete, transfer ordered by . sbRemi 17:15 Transferred by [facility] to [facility], Transfer form completed. kc6 Note: report called to LALO Polanco. via [facility] 17:15 Condition: stable 17:15 Instructed on the need for transfer, 17:16 Patient left the ED. kc6 Signatures: Dispatcher [employer] EDMS Bety Dash Ferrer, Li, Reg Reg mr Samara Bach, RN RN iw Pam Perez RN RN [id number] Annika Lewis RN RN kc6 Carla Carlson PA-C PACalixto [id number] Hui Lu RN RN nj1 Penny Aguilar RN RN os Ilene Chahal sm8 Corrections: (The following items were deleted from the chart) 12:04 12:04 PMHx: Hypertension; os os 12:04 12:04 PMHx: Prostate Cancer; os os
--- NOTE | 2023-04-22 14:33 | EDPHYS ---
Physician Documentation [facility] Name: Sea Ch Age: 82 yrs Sex: Male : 1940 Arrival Date: 04/22/2023 Time: 11:55 Bed 19 Private MD: ED Physician Luke Vázquez HPI: 04/22 14:39 This 82 yrs old Male presents to ER via Wheelchair with complaints of Abdominal Pain. sb4 14:39 The patient presents with abdominal pain right lower quadrant. Onset: The sb4 symptoms/episode began/occurred this morning. The symptoms radiate to the right flank. Associated signs and symptoms: Pertinent positives: nausea and vomiting. Modifying factors: The symptoms are alleviated by nothing, the symptoms are aggravated by nothing. The patient has not experienced similar symptoms in the past. The patient has not recently seen a physician. Historical: - Allergies: 12:08 No Known Allergies; iw - PMHx: 13:52 Hypertensive disorder; kc6 - PSHx: 13:52 None; kc6 - Immunization history:: Adult Immunizations not up to date. - Social history:: Smoking status: Patient denies any tobacco usage or history of. ROS: 14:39 Constitutional: Negative for fever, chills, and weight loss, sb4 14:39 Abdomen/GI: Positive for abdominal pain, nausea and vomiting, 14:39 Back: Positive for flank pain, on the right, 14:39 All other systems are negative, Exam: 14:39 Head/Face: Normocephalic, atraumatic. Eyes: Extra-ocular motions intact. Periorbital sb4 areas with no swelling, redness, or edema. ENT: Mucous membranes moist. Cardiovascular: Regular rate and rhythm with a normal S1 and S2. Respiratory: Lungs have equal breath sounds bilaterally, clear to auscultation and percussion. No rales, rhonchi or wheezes noted. No increased work of breathing, no retractions or nasal flaring. Skin: Warm, dry with normal turgor. Normal color with no rashes, no lesions, and no evidence of cellulitis. MS/ Extremity: Pulses equal, no cyanosis. Neurovascular intact. Full, normal range of motion. 14:39 Constitutional: The patient appears alert, awake, uncomfortable, vomiting 14:39 Abdomen/GI: Inspection: abdomen appears normal, Bowel sounds: normal, Palpation: soft, mild abdominal tenderness, in the right lower quadrant, 14:39 Back: CVA tenderness, that is moderate, is noted on the right, Vital Signs: 12:01 BP 186 / 90; Pulse 53; Resp 18; Temp 98.4; Pulse Ox 100% ; Weight 77.11 kg; os 12:56 BP 210 / 97; Pulse 56; Resp 16 S; Pulse Ox 100% on R/A; Pain 5/10; kc6 13:14 BP 217 / 102; Pulse 56; Resp 17 S; Pulse Ox 100% on R/A; kc6 13:44 BP 190 / 85; Pulse 63; Resp 18 S; Pulse Ox 100% on R/A; kc6 14:11 BP 159 / 76; Pulse 82; Resp 16 S; Pulse Ox 100% on R/A; kc6 12:56 Pain Scale: Adult kc6 MDM: 12:06 Patient medically screened. [facility] 14:39 Differential diagnosis: appendicitis, bowel obstruction, diverticulitis, gastritis, [facility] Mesenteric ischemia or infarction, non-specific abd pain, Pyelonephritis, Ureterolithiasis, urinary tract infection. 14:41 Data reviewed: vital signs, nurses notes, lab test result(s), radiologic studies, I [facility] have discussed the patient's presentation/case with the attending Emergency Department Physician;. Management of patient was discussed with the following: Unified Communications Engineer: Vascular surgery at [facility], agrees to consult. Care significantly affected by the following chronic conditions: Hypertension. Counseling: I had a detailed discussion with the patient and/or guardian regarding the historical points, exam findings, and any diagnostic results supporting the discharge/admit diagnosis, the presence of at least one elevated blood pressure reading (>120/80) during this emergency department visit, lab results, radiology results, the need to transfer to another facility, for higher level of care, [facility] does not immediately have the required specialist. 16:34 Management of patient was discussed with the following: Hospitalist: Hospitalist at [address], accepts patient. 04/22 12:13 Order name: CBC with Diff; Complete Time: 12:45 [facility] 04/22 12:13 Order name: CMP; Complete Time: 13:05 [facility] 04/22 12:13 Order name: Lipase; Complete Time: 13:05 [facility] 04/22 12:13 Order name: Urinalysis w/ reflexes; Complete Time: 13:02 sb4 04/22 13:02 Order name: Urine Culture EDMS 04/22 14:15 Order name: Lactate w/ 2H reflex if indic.; Complete Time: 15:23 sb4 04/22 14:15 Order name: Blood Culture Adult (2) sb4 04/22 14:15 Order name: PT-INR; Complete Time: 15:10 sb4 04/22 14:15 Order name: Troponin High Sensitivity; Complete Time: 14:42 sb4 04/22 14:15 Order name: BNP; Complete Time: 14:42 sb4 04/22 12:13 Order name: CT Abd/Pelvis - IV Contrast Only; Complete Time: 14:01 sb4 04/22 12:13 Order name: IV Saline Lock; Complete Time: 12:35 sb4 04/22 12:13 Order name: Labs collected and sent; Complete Time: 12:36 sb4 Administered Medications: 12:50 Drug: NS 0.9% IV 1000 ml IV at 1 bolus Per protocol; 1000 mL bolus Route: IV; Rate: 1 kc6 bolus; Site: left antecubital; 14:11 Follow up: Response: No adverse reaction; IV Status: Completed infusion; IV Intake: kc6 1000ml 12:50 Drug: Famotidine IVP 20 mg IVP once; dilute with 10 mL 0.9% NaCl; give over 2 minutes kc6 Route: IVP; Site: left antecubital; 14:11 Follow up: Response: No adverse reaction; Pain is decreased kc6 12:50 Drug: Ondansetron IVP 4 mg IVP once; over 2 minutes Route: IVP; Site: left antecubital; kc6 14:11 Follow up: Response: No adverse reaction; Nausea is decreased; Vomiting decreased kc6 12:50 Drug: morphine IVP or IV 4 mg IVP once over 4 mins Route: IVP; Infused Over: 4 mins; kc6 Site: left antecubital; 14:11 Follow up: Response: No adverse reaction; Pain is decreased; RASS: Alert and Calm (0) kc6 13:52 Drug: hydrALAZINE IVP 10 mg IVP once Route: IVP; Site: left antecubital; kc6 14:11 Follow up: Response: No adverse reaction; Blood pressure is lowered kc6 15:33 Drug: NS 0.9% IV 1000 ml IV at 1 bolus Per protocol; 1000 mL bolus Route: IV; Rate: 1 nj1 bolus; Site: right antecubital; 17:15 Follow up: Response: No adverse reaction; IV Status: Completed infusion; IV Intake: kc6 1000ml Disposition: 17:58 Co-signature as Attending Physician, Luke Vázquez MD I reviewed the patient's care rn provided by the Advanced Practice Provider and agree with the diagnosis and treatment plan. Disposition Summary: 04/22/23 14:32 Transfer Ordered Notes: Transfer Location: [facility] sb4 Reason: Higher level of care sb4 Condition: Fair sb4 Problem: new sb4 Symptoms: are unchanged sb4 Accepting Physician: Dr. 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 Ridley sb4 kc6
[2023-04-22 14:37] LABS: Troponin High Sensitivity 5.7 pg/mL (<58.9)
[2023-04-22 15:08] LABS: Protime INR 1.06
[2023-04-22 17:26] VITALS: TEMP 98.4; O2SAT 100
[2023-04-22 17:44] VITALS: BP 159/76
[2023-04-29] MEDS ORDERED: LIDOCAINE 1% 20 ML MDV ONE (15:29)
[2023-04-30] MEDS ORDERED: DOXYCYCLINE 100 MG CAP PO ONE (23:55)
[2023-04-30] MEDS ORDERED: CEPHALEXIN 250 MG CAP ONE (23:55)
== END 2023-04-22 17:16 | disposition short-term general hospital (02) ==
LOC: ER 11:55
DX: R10.31 Right lower quadrant pain (principal); R11.2 Nausea with vomiting, unspecified; I10 Essential (primary) hypertension
CPT/HCPCS: 96361; 87040 ×2; 87088; 85025; 81001; 87086; 36415; 87205; 85610; 83605; 84484; 83690; 80053; 83880; 74177; 96375; 96374; 99285; Q9967; J0360; J2405; J7030 ×2

== ENCOUNTER 2023-05-18 15:41 | Emergency (ER) | payer OTHER ==
--- OUTSIDE RECORDS SUMMARY | 2023-05-18 15:45 | XMS REPORT | Continuity of Care Document ---
:1940 Author Organization [facility] t Address [address] [facility] [address] [place] [address] Care Team Providers Name Role Phone Khai VINCENT, Gordon Shaffer Attending Clinician [phone] Dave Moore MD Attending Clinician Orlando Valdes MD Attending Clinician Jerald Cali MD Attending Clinician JERALD CALI Attending Clinician Unavailable DAVE MOORE Attending Clinician Unavailable DAVE MOORE Admitting Clinician Unavailable Payers Payer Name Policy Type Policy Number Effective Date Expiration Date S ource Problems Condition Condition Condition Status Onset Resolution Last Treating Co mments Source Name Details Category Date Date Treatment Clinician Date Celiac Celiac Disease Recurre 2022-06 [facility] artery artery nce 0-31 [facility] Allergies, Adverse Reactions, Alerts Allergy Allergy Status Severity Reaction(s) Onset Inactive Treating Comm ents Source Name Type Date Date Clinician NO KNOWN Allergy Active [facility] Social History Social Habit Start Date Stop Date Quantity Comments Source Sexual orientation [facility] Sex Assigned At [birth year] [facility] 00:00:00 [facility]:00 [facility] Medications Ordered Filled Start Stop Current Ordering Indication Dosage Frequency Signature Comments Components Source Medication Medication Date Date Medication? Clinician (SIG) Name Name amLODIPine 2022-06- Yes 5mg QD Take 1 [facility] (NORVASC) 5 06-25 tablet (5 Maude kes MG tablet 00:00: 23:59 mg total) Me dical 00 :00 by mouth Center daily for 30 days. aspirin 81 2022-06- Yes 81mg QD Take [address] [facility] chewable 06-25 tablet (81 [facility] tablet 00:00: 23:59 mg total) Medic al 00 :00 by mouth Center daily for 30 days. amLODIPine 2022-06- Yes 5mg QD Take [address] [facility] (NORVASC) 5 06-25 tablet (5 Maude kes MG tablet 00:00: 23:59 mg total) Me dical 00 :00 by mouth Center daily for 30 days. aspirin 81 2022-06- Yes 81mg QD Take [address] [facility] MG chewable 06-25 tablet (81 [facility] tablet 00:00: 23:59 mg total) Medic al 00 :00 by mouth Center daily for 30 days. metoprolol 2022-06 Yes 50mg Q.5D Take 1 [facility] succ[facility] - [facility] (50 [facility] (TOPROL-XL) 12:45: mg total) M edical 50 MG 24 hr 50 by mouth 2 Ce nter tablet (two) times daily. metoprolol 2022-06 Yes 50mg Q.5D Take 1 [facility] succinate 1-01 tablet (50 [facility] (TOPROL-XL) 12:45: mg total) M edical 50 MG 24 hr 50 by mouth 2 Ce nter tablet (two) times daily. Vital Signs Vital Name Observation Time Observation Value Comments Source Systolic blood 2023-04-24 11:00:00 144 mm[Hg] [facility] Diastolic blood 2023-04-24 11:00:00 72 mm[Hg] [facility] Heart rate 2023-04-24 11:00:00 58 /min [facility] Body temperature 2023-04-24 11:00:00 36.28 Renae [facility] Respiratory rate 2023-04-24 11:00:00 20 /min [facility] Oxygen saturation in 2023-04-24 11:00:00 100 /min [facility] Arterial blood by Medical Ce nter Pulse oximetry Procedures Procedure Date / Time Performed Performing Clinician [facility] e BASIC METABOLIC PANEL 2023-04-24 04:54:00 Orlando Valdes [facility] BASIC METABOLIC PANEL 2023-04-23 05:21:00 [facility] HEMOGLOBIN A1C 2023-04-23 05:21:00 [facility] PROTHROMBIN TIME/INR 2023-04-23 05:21:00 [facility] LIPID PANEL 2023-04-23 05:21:00 [facility] MAGNESIUM 2023-04-23 05:21:00 [facility] PHOSPHORUS 2023-04-23 05:21:00 [facility] HEPATIC FUNCTION PANEL 2023-04-23 05:21:00 [facility] CBC W/PLT COUNT & AUTO 2023-04-23 05:21:00 [facility] CBC W/PLT COUNT & AUTO 2023-04-23 05:21:00 [facility] ECG 12-LEAD 2023-04-23 01:13:26 Unknown, 7 [facility] ECG 12-LEAD 2023-04-23 01:13:26 Unknown, 7 [facility] ECG 12-LEAD 2023-04-23 01:10:06 Unknown, 7 [facility] ECG 12-LEAD 2023-04-23 01:10:06 [facility] ECG 12-LEAD 2023-04-23 01:10:06 Unknown, 7 [facility] URINALYSIS W/ 2023-04-22 23:23:[address] [facility] [address] BRAIN WITHOUT IV 2023-04-22 20:17:46 [facility] Plan of Care Planned Activity Planned Date Details Comments Source Future Scheduled 2023-02-22 Influenza Vaccine (#1) [facility] 00:00[facility]00 [code = Influenza Medical Ce nter Vaccine (#1)] Future Scheduled 2023-02-22 Influenza Vaccine (#1) [facility] 00:00:00 [code = Influenza Medical Ce nter Vaccine (#1)] Future Scheduled 2022-06-[address] [facility] 00:00:00 (12+) [code = Medical Center DEPRESSION SCREENING (12+)] Future Scheduled 2022-06-24 FALLS RISK SCREENING [facility] 00:00:00 [code = FALLS RISK Medical C enter SCREENING] Future Scheduled 2022-06-[address] [facility] 00:00:00 (12+) [code = Medical Center DEPRESSION SCREENING (12+)] Future Scheduled 2022-06-24 FALLS RISK SCREENING [facility] 00:00:00 [code = FALLS RISK Medical C enter SCREENING] Future Scheduled 2005-07-[address] [facility] Test 00:00:00 WELLNESS (YEAR 2 or Medical Center FIRST YEAR if no IPPE) [code = MEDICARE ANNUAL WELLNESS (YEAR 2 or FIRST YEAR if no IPPE)] Future Scheduled 2005-07-[address] [facility] 00:00:00 WELLNESS (YEAR 2 or Medical Center FIRST YEAR if no IPPE) [code = MEDICARE ANNUAL WELLNESS (YEAR 2 or FIRST YEAR if no IPPE)] Future Scheduled 2004 PNEUMOCOCCAL 65+ YRS [facility] Test 00:00:00 (1 - PCV) [code = Medical Ce nter PNEUMOCOCCAL 65+ YRS (1 - PCV)] Future Scheduled 2004 PNEUMOCOCCAL 65+ YRS [facility] 00:00:00 (1 - PCV) [code = Medical Ce nter PNEUMOCOCCAL 65+ YRS (1 - PCV)] Future Scheduled 1989 SHINGLES VACCINES ([address] [facility] 00:00:00 of 2) [code = SHINGLES Medic al Center VACCINES (1 of 2)] Future Scheduled 1989 SHINGLES VACCINES ([address] [facility] 00:00:00 of 2) [code = SHINGLES Medic al Center VACCINES (1 of 2)] Future Scheduled 1958 DTAP/TDAP/TD VACCINES [facility] 00:00:00 (1 - Tdap) [code = Medical C enter DTAP/TDAP/TD VACCINES (1 - Tdap)] Future Scheduled 1958 DTAP/TDAP/TD VACCINES [facility] 00:00:00 (1 - Tdap) [code = Medical C enter DTAP/TDAP/TD VACCINES (1 - Tdap)] Future Scheduled [address] [facility] Test 00:00:00 Counseling and Medical Cente r Screening (12+) [code = Tobacco Cessation Counseling and Screening (12+)] Future Scheduled [address] [facility] 00:00:00 [facility]ing and Medical Cente r Screening (12+) [code = Tobacco Cessation Counseling and Screening (12+)] Future Scheduled 1940-02-04 COVID-19 VACCINE (#1) [facility] 00:00:00 [code = COVID-[address] VACCINE (#1)] Future Scheduled 1940-02-04 COVID-19 VACCINE (#1) [facility] 00:00:00 [code = COVID-[address] VACCINE (#1)] Encounters Start End Encounter Admission Attending Care Care Encounter Source Date/Time Date/Time Type Type Clinicians Facility Department ID 2023-04-22 2023-04-24 [facility] [id number] [facility] 18:13:00 12:45:00 Encounter Dave Moore solitario [place]oussaint Jerald Daniels [place] 2023-04-22 2023-04-24 Outpatient ER KARELY, [facility] Vascular [id number] [facility] 18:13:00 12:45:00 JERALD Stover 2023-04-22 2023-04-24 [facility] Gordon [facility]ix [facility] [id number] [facility] 18:13:00 12:45:00 Encounter Dave Moore solitario [place] Jerald Daniels [place] 2023-04-23 2023-04-23 Orders [facility] [id number] 00:00:00 00:00:00 [facility] 2023-04-23 2023-04-23 Orders [facility] [id number] 00:00:00 00:00:00 Only [facility] 2023-04-22 2023-04-22 Outpatient SAVANAH ROMAN [facility] [id number] [facility] 19:20:44 19:20:44 DAVE Results Test Description Test Time Test Comments Results Result Comments Source BASIC METABOLIC PANEL 2023-04-24 06:03:54 Test Item Value Reference Range Interpretation Comme nts SODIUM (BEAKER) (test 141 meq/L 136-145 code = 381) POTASSIUM (BEAKER) 3.8 meq/L 3.5-5.1 (test code = 379) CHLORIDE (BEAKER) (test 109 meq/L 98-107 H code = 382) CO2 (BEAKER) (test code 23 meq/L 22-29 = 355) BLOOD UREA NITROGEN 26 mg/dL 7-21 H (BEAKER) (test code = 354) CREATININE (BEAKER) 1.20 mg/dL 0.57-1.25 (test code = 358) GLUCOSE RANDOM (BEAKER) 114 mg/dL 70-105 H (test code = 652) CALCIUM (BEAKER) (test 9.1 mg/dL 8.4-10.2 code = 697) EGFR (BEAKER) (test 61 mL/min/1.73 sq In terpretation of eGFR values code = 1092) m Stage Descripti on Result G1 Normal or high >=90 G2 Mildly decreased 60-89 G3a Mildly to moderately 45-5 9 G3b Moderately to severely 30- 44 G4 Severly decreased 15-29 G5 Kidney failure <15Repo rted eGFR is based on the CK D-EPI 2020 equation that d oes not use a race coefficien tEstimated GFR is not as accurate as Creatinine Clearance in pr edicting glomerular filt ration rate. Estimated GFR i s not applicable for dialysis sapna chahal [employer] ID - ADMINHEMOGLOBIN [id number] 10:09:28 Test Item Value Reference Range Interpretation Comments HEMOGLOBIN A1C 7.1 % See_Comment H [Automated m essage] ELECTROPHORESIS (BEAKER) The system which (test code = 3811) generated this result transmitted ref erence range: <=5.6%. The reference range was not used to int erpret this result as normal/abnormal . "The A1c is measured using a NGS-certified method. HbA1c value equal to or greater than 6.5% as thediagnosis cutoff for diabetes. An HbA1c value of 5.7- 6.4% indicates increased risk for diabetes (prediabetes)."[employer]ning [employer] ID - ADMECG 12 [id number] 07:39:35Ventricular Rate 62 BPMAtrial Rate 62 BPMP-R Interval 146 msQRS Duration 86 msQ-T Interval 426 msQTCCalculation(Bazett) 432 msP Hopkins 88 degreesR Hopkins -37 degreesT Hopkins -12 degrees Normal sinus rhythm with sinus arrhythmiaLeft axis deviationAbnormal ECGNo previous ECGs availableConfirmed by MD DRUMMOND YOCHAI ([id number]) on 04/23/2023 7:39:29 [facility] LIPID [id number] 06:00:22 Test Item Value Reference Range Interpretation Comments TRIGLYCERIDES (BEAKER) (test code = 126 mg/dL 540) CHOLESTEROL (BEAKER) (test code = 196 mg/dL 631) HDL CHOLESTEROL (BEAKER) (test code 37 mg/dL = 976) LDL CHOLESTEROL CALCULATED (BEAKER) 134 mg/dL (test code = 633) Triglyceride Reference Range: Low Risk <150 Borderline 150-199 High Risk 200- 499 Very High Risk >=500Cholesterol Reference Range: Low Risk <200 Borderline 200-239 High Risk >240HDL Cholesterol Reference Range: Low Risk >=60 High Risk <40LDL Cholesterol Reference Range: Optimal <100 Near Optimal 100-129 Borderline 130-159 High 160-189 Very High >=190 [employer] ID - adminHEPATIC FUNCTION [id number] 06:00:22 Test Item Value Reference Range Interpretation Comments TOTAL PROTEIN (BEAKER) (test code = 6.4 gm/dL 6.0-8.3 770) ALBUMIN (BEAKER) (test code = 1145) 3.6 g/dL 3.5-5.0 BILIRUBIN TOTAL (BEAKER) (test code 1.5 mg/dL 0.2-1.2 H = 377) BILIRUBIN DIRECT (BEAKER) (test 0.4 mg/dL 0.1-0.5 code = 706) ALKALINE PHOSPHATASE (BEAKER) (test 86 U/L 40-150 code = 346) AST (SGOT) (BEAKER) (test code = 17 U/L 5-34 353) ALT (SGPT) (BEAKER) (test code = 13 U/L 6-55 347) [employer] ID - adminBASIC METABOLIC [id number] 06:00:21 Test Item Value Reference Range Interpretation Comments SODIUM (BEAKER) 141 meq/L 136-145 (test code = 381) POTASSIUM 4.0 meq/L 3.5-5.1 (BEAKER) (test code = 379) CHLORIDE (BEAKER) 111 meq/L 98-107 H (test code = 382) CO2 (BEAKER) 18 meq/L 22-29 L (test code = 355) BLOOD UREA 16 mg/dL 7-21 NITROGEN (BEAKER) (test code = 354) CREATININE 1.21 mg/dL 0.57-1.25 (BEAKER) (test code = 358) GLUCOSE RANDOM 112 mg/dL 70-105 H (BEAKER) (test code = 652) CALCIUM (BEAKER) 9.1 mg/dL 8.4-10.2 (test code = 697) EGFR (BEAKER) 60 Interpretatio n of eGFR (test code = mL/min/1.73 values Stage De scription 1092) sq m Result G1 Hui l or high >=90 G2 Mildly decreased 60-89 G3a Mildl y to moderately 45-5 9 G3b Moderately to s everely 30-44 G4 Severl y decreased 15-29 G5 Kidney failure <15Reported eGF R is based on the CKD-EPI 2020 equation that d oes not use a race coefficientEsti mated GFR is not as accur ate as Creatinine Nasreen ghassan in predicting glom erular filtration rate . Estimated GFR is not appl icable for dialysis patien ts [employer] ID - [id number] 06:00:21 Test Item Value Reference Range Interpretation Comments MAGNESIUM (BEAKER) (test code = 1.9 mg/dL 1.6-2.6 627) [employer] ID - [id number] 06:00:21 Test Item Value Reference Range Interpretation Comments PHOSPHORUS (BEAKER) (test code = 2.1 mg/dL 2.3-4.7 L 604) [employer] ID - adminPROTHROMBIN [id number] 05:45:37 Test Item Value Reference Range Interpretation Comments PROTIME (BEAKER) (test code = 14.6 seconds 11.9-14.2 H 759) INR (BEAKER) (test code = 370) 1.13 <=5.90 RECOMMENDED COUMADIN/WARFARIN INR THERAPY RANGESSTANDARD DOSE: 2.0 - 3.0 Includes: PROPHYLAXIS for venous thrombosis, systemic embolization; TREATMENT for venous thrombosis and/or pulmonary embolus.HIGH RISK: Target INR is 2.5-3.5 for patients with mechanical heart valves.CBC W/PLT COUNT & AUTO [id number] 05:38:51 Test Item Value Reference Range Interpretation Comments WHITE BLOOD CELL COUNT (BEAKER) 7.7 K/ L 3.5-10.5 (test code = 775) RED BLOOD CELL COUNT (BEAKER) 4.85 M/ L 4.63-6.08 (test code = 761) HEMOGLOBIN (BEAKER) (test code = 14.8 GM/DL 13.7-17.5 410) HEMATOCRIT (BEAKER) (test code = 45.3 % 40.1-51.0 411) MEAN CORPUSCULAR VOLUME (BEAKER) 93 fL 79-92 H (test code = 753) MEAN CORPUSCULAR HEMOGLOBIN 30.5 pg 25.7-32.2 (BEAKER) (test code = 751) MEAN CORPUSCULAR HEMOGLOBIN CONC 32.7 GM/DL 32.3-36.5 (BEAKER) (test code = 752) RED CELL DISTRIBUTION WIDTH 12.8 % 11.6-14.4 (BEAKER) (test code = 412) PLATELET COUNT (BEAKER) (test 149 K/CU MM 150-450 L code = 756) MEAN PLATELET VOLUME (BEAKER) 11.5 fL 9.4-12.4 (test code = 754) NUCLEATED RED BLOOD CELLS 0 /100 WBC 0-0 (BEAKER) (test code = 413) NEUTROPHILS RELATIVE PERCENT 70 % (BEAKER) (test code = 429) LYMPHOCYTES RELATIVE PERCENT 17 % (BEAKER) (test code = 430) MONOCYTES RELATIVE PERCENT 12 % (BEAKER) (test code = 431) EOSINOPHILS RELATIVE PERCENT 1 % (BEAKER) (test code = 432) BASOPHILS RELATIVE PERCENT 1 % (BEAKER) (test code = 437) NEUTROPHILS ABSOLUTE COUNT 5.33 K/ L 1.78-5.38 (BEAKER) (test code = 670) LYMPHOCYTES ABSOLUTE COUNT 1.30 K/ L 1.32-3.57 L (BEAKER) (test code = 414) MONOCYTES ABSOLUTE COUNT (BEAKER) 0.89 K/ L 0.30-0.82 H (test code = 415) EOSINOPHILS ABSOLUTE COUNT 0.06 K/ L 0.04-0.54 (BEAKER) (test code = 416) BASOPHILS ABSOLUTE COUNT (BEAKER) 0.05 K/ L 0.01-0.08 (test code = 417) IMMATURE GRANULOCYTES-RELATIVE 0.40 % 0.00-1.00 PERCENT (BEAKER) (test code = 2801) Urinalysis w/ [id number] 23:58:17 Test Item Value Reference Range Interpretation Comments Color, UA (test code Colorless = 5778-6) Clarity, UA (test Clear code = 5767-9) Specific [place], UA 1.023 1.001-1.035 (test code = 5811-5) pH, UA (test code = 7.0 5.0-8.0 5803-2) Protein, UA (test Negative Negative code = 36012-3) Glucose, UA (test 30 mg/dL Negative A code = 365) Ketones, UA (test Negative Negative code = 2514-8) Bilirubin, UA (test Negative Negative code = 52053-6) Blood, UA (test code Trace Negative A = 63881-6) Nitrite, UA (test Negative Negative code = 5802-4) Leukocytes, UA (test Negative Negative code = 5799-2) Urobilinogen, UA 0.2 0.2-1.0 (test code = 67034-1) RBC, UA (test code = 21 See_Comment [Autom ated 29961-3) message] The system which generated this result transmitted reference range : /HPF. The reference range was not used to interpret this result as normal/abnormal . WBC, UA (test code = See_Comment [Autom ated 5821-4) message] The system which generated this result transmitted reference range : /HPF. The reference range was not used to interpret this result as normal/abnormal . Specimen Source (test Urine, Clean code = 2795) Catch CARLA (test code = CARLA) [employer] ID - [auto]Awning [employer] Hel[employer] ID - tech Lab Interpretation Abnormal (test code = 30276-7) [facility]/ [id number] 23:58:17 Test Item Value Reference Range Interpretation Comments Color, UA (test code Colorless = 5778-6) Clarity, UA (test Clear code = 5767-9) Specific [place], UA 1.023 1.001-1.035 (test code = 5811-5) pH, UA (test code = 7.0 5.0-8.0 5803-2) Protein, UA (test Negative Negative code = 35149-9) Glucose, UA (test 30 mg/dL Negative A code = 365) Ketones, UA (test Negative Negative code = 2514-8) Bilirubin, UA (test Negative Negative code = 91747-5) Blood, UA (test code Trace Negative A = 34217-6) Nitrite, UA (test Negative Negative code = 5802-4) Leukocytes, UA (test Negative Negative code = 5799-2) Urobilinogen, UA 0.2 0.2-1.0 (test code = 82624-3) RBC, UA (test code = 21 See_Comment [Autom ated 19604-9) message] The system which generated this result transmitted reference range : /HPF. The reference range was not used to interpret this result as normal/abnormal . WBC, UA (test code = See_Comment [Autom ated 5821-4) message] The system which generated this result transmitted reference range : /HPF. The reference range was not used to interpret this result as normal/abnormal . Specimen Source (test Urine, Clean code = 2795) Catch CARLA (test code = CARLA) [employer] [employer] ID - [auto][facility]ning [employer] ID - tech Lab Interpretation Abnormal (test code = 38745-4) [facility] [id number] 23:58:17 Test Item Value Reference Range Interpretation Comments COLOR (BEAKER) (test code Colorless = 470) CLARITY (BEAKER) (test Clear code = 469) SPECIFIC GRAVITY UA 1.023 1.001-1.035 (BEAKER) (test code = 468) PH UA (BEAKER) (test code 7.0 5.0-8.0 = 467) PROTEIN UA (BEAKER) (test Negative Negative code = 464) GLUCOSE UA (BEAKER) (test 30 mg/dL Negative A code = 365) KETONES UA (BEAKER) (test Negative Negative code = 371) BILIRUBIN UA (BEAKER) Negative Negative (test code = 462) BLOOD UA (BEAKER) (test Trace Negative A code = 461) NITRITE UA (BEAKER) (test Negative Negative code = 465) LEUKOCYTE ESTERASE UA Negative Negative (BEAKER) (test code = 466) UROBILINOGEN UA (BEAKER) 0.2 0.2-1.0 (test code = 463) RBC UA (BEAKER) (test code 21 /HPF = 519) WBC UA (BEAKER) (test code < /HPF = 520) SOURCE(BEAKER) (test code Urine, Clean Catch = 2795) [employer] [employer] ID - [auto]Awning [employer]anger Helper ID - techCT brain without IV [id number] 20:32:28CT BRAIN WITHOUT IV CONTRAST INDICATION: Stroke, follow up COMPARISON: None TECHNIQUE: Noncontrast axial CT imaging of the brain and skull. DOSE REDUCTION: Dose modulation, iterative reconstruction, and/orweight-based adjustment of the mA/kV was utilized to reduce theradiation dose to as low as reasonably achievable. FINDINGS:No intracranial hemorrhage, midline shift or mass effect. Midlinestructuresare normally developed. Scattered foci of hypoattenuationare present throughout the periventricular and subcortical white matter,and, although nonspecific by imaging, statistically represent mildchronic microvascular ischemic changes in this age group. No hydrocephalus. Orbits are within normal limits. No obstructive paranasal sinus disease.[facility] [id number] 20:32:28 [facility] 1940 Sex: MCT BRAIN WITHOUT IV CONTRASTINDICATION: Stroke, follow upCOMPARISON: NoneTECHNIQUE: Noncontrast axial CT imaging of the brain and skull. DOSE REDUCTION: Dose modulation, iterative reconstruction, and/orweight-based adjustment of the mA/kV was utilized to reduce theradiation dose to as low as reasonably achievable.FINDINGS:No intracranial hemorrhage, midline shift or mass effect. Midlinestructures are normally developed. Scattered foci of hypoattenuationare present throughout the periventricular andsubcortical white matter,and, although nonspecific by imaging, statistically represent mildchronic microvascular ischemic changes in this age group.No hydrocephalus.Orbits are within normal limits.No obstructive paranasal sinus disease.IMPRESSION:No acute intracranial findingsIf there is persistent clinical concern for intracranial pathology, MRexamination is recommended for further characterization.Electronically Signed By: Celina Montesinos04/22/2023 20:34 CDTWorkstation Name: [id number]
--- NOTE | 2023-05-18 16:40 | RAD REPORT ---
EXAM DESCRIPTION: CT - Stone Protocol - 05/18/2023 4:29 pm CLINICAL HISTORY: Flank pain. FLANK PAIN COMPARISON: Abdomen Pelvis W Contrast dated 04/22/2023; Stone Protocol dated 08/23/2017 TECHNIQUE: Axial images were obtained without oral or IV contrast. Lack of contrast limits solid org an and vascular assessment. The [id number] spans the entirety of the system partially obscuring uppermost abdomen and lung bases. Coronal reformatted images were obtained and reviewed. All CT scans are performed using dose optimization technique as appropriate and may include automated exposure control or mA/KV adjustment according to patient size. FINDINGS: The lower lung torres are clear. Imaged portions of the liver and spleen show no suspicious findings on non-contrast imaging. Both adr enal glands are normal. 16 mm soft tissue density lesion is unchanged near the uncinate process of th e pancreas. No pathologic lymphadenopathy in the abdomen or pelvis. 5 mm stone is present distal right ureter resulting mild right hydronephrosis and hydroureter. No lef t-sided stone or hydronephrosis. No bowel obstruction, free air, free fluid or abscess. Normal appendix noted.Prominent sigmoid divert iculosis coli without diverticulitis. Small fat containing left inguinal hernia. Moderate fat contain ing right inguinal hernia. No significant bony abnormality. IMPRESSION: 5 mm stone distal right ureter resulting in mild right hydronephrosis and hydroureter. Prominent diverticulosis coli involves the sigmoid colon without diverticulitis. Moderate fat containing right inguinal hernia.
[2023-05-18] MEDS ORDERED: PROMETHAZINE 25 MG TABLET ONE (17:30)
[2023-05-18] MEDS ORDERED: HYDROCODONE/APAP 5/325 MG TAB ONE (17:30)
[2023-05-18] MEDS ORDERED: TAMSULOSIN 0.4 MG SR CAP ONE (17:31)
[2023-05-18 17:56] LABS: Absolute Lymphocytes (CBC) 0.7 K/uL (0.7-4.9); Hematocrit 47.9 % (39.6-49.0); Lymphocytes % 6.4 % (15.3-44.8); MCV 90.8 fL (80-100); MPV 9.2 fL (7.6-11.3); Platelets 149 thou/uL (152-406); RBC Red Blood Cell Count 5.28 M/uL (4.33-5.43)
[2023-05-18 18:10] LABS: Potassium 4.5 mEq/L (3.5-5.1)
[2023-05-18] MEDS ORDERED: CIPROFLOXACIN HCL 500 MG TAB ONE (19:37)
--- NOTE | 2023-05-18 20:04 | ER ---
Nurse's Notes [facility] Name: Sea Ch Age: 82 yrs Sex: Male : 1940 Arrival Date: 05/18/2023 Time: 15:41 Bed 12 Private MD: Diagnosis: Hydronephrosis with renal and ureteral calculous obstruction Presentation: 05/18 16:04 Chief complaint: Patient states: right side of abdomen and into the back pain, feels ko1 like a kidney stone but not sure. started about an hour and a half ago. Coronavirus screen: At this time, the client does not indicate any symptoms associated with coronavirus-19. Ebola Screen: No symptoms or risks identified at this time. Initial Sepsis Screen: Does the patient meet any 2 criteria? No. Patient's initial sepsis screen is negative. Does the patient have a suspected source of infection? No. Patient's initial sepsis screen is negative. Risk Assessment: Do you want to hurt yourself or someone else? Patient reports no desire to harm self or others. Onset of symptoms was May 18, 2023. 16:04 Method Of Arrival: Ambulatory ko1 16:04 Acuity: JANIE 3 ko1 Triage Assessment: 16:06 General: Appears uncomfortable, Behavior is cooperative, appropriate for age. Pain: ko1 Complains of pain in abdomen. GI: Reports lower abdominal pain, upper abdominal pain, nausea. Historical: - Allergies: 16:06 No Known Allergies; ko1 - PMHx: 16:06 Hypertensive disorder; ko1 - Immunization history:: Adult Immunizations up to date. - Social history:: Smoking status: Patient denies any tobacco usage or history of. Screenin:45 [facility] ED Fall Risk Assessment (Adult) History of falling in the last 3 months, kc6 including since admission No falls in past 3 months (0 pts) Confusion or Disorientation No (0 pts) Intoxicated or Sedated No (0 pts) Impaired Gait No (0 pts) Mobility Assist Device Used No (0 pt) Altered Elimination No (0 pt) Score/Fall Risk Level 0 - 2 = Low Risk. Abuse screen: Denies threats or abuse. Denies injuries from another. Nutritional screening: No deficits noted. Tuberculosis screening: No symptoms or risk factors identified. Assessment: 16:06 Reassessment: please see triage assessment. kc6 17:06 Reassessment: Patient appears in no apparent distress at this time. No changes from kc6 previously documented assessment. Patient and/or family updated on plan of care and expected duration. Pain level reassessed. Patient is alert, oriented x 3, equal unlabored respirations, skin warm/dry/pink. 18:06 Reassessment: Patient appears in no apparent distress at this time. No changes from kc6 previously documented assessment. Patient and/or family updated on plan of care and expected duration. Pain level reassessed. Patient is alert, oriented x 3, equal unlabored respirations, skin warm/dry/pink. 19:00 Reassessment: Pt continues to be able to answer questions appropriately, is able to jb4 answer yes or no questions and follow commands. Is alert oriented x3, no s/s of pain or distress noted. 20:49 Reassessment: Patient appears in no apparent distress at this time. No changes from jb4 previously documented assessment. Patient and/or family updated on plan of care and expected duration. Pain level reassessed. D/c pending ride home from sister. Vital Signs: 16:04 BP 164 / 85; Pulse 49; Resp 18; Temp 97.3; Pulse Ox 100% ; ko1 17:15 Weight 74.84 kg (R); Height 6 ft. 0 in. (R); kc6 18:59 BP 128 / 70; Pulse 55; Resp 18 S; Pulse Ox 95% on R/A; kc6 20:49 BP 151 / 92; Pulse 64; Resp 16; Pulse Ox 98% on R/A; jb4 17:15 Body Mass Index 22.38 (74.84 kg, 182.88 cm) [facility] ED Course: 15:45 Patient arrived in ED. mg5 15:52 Judit Alvarez FNP-C is PHCP. snw 15:52 Ramiro Hirsch MD is Attending Physician. snw 16:06 Triage completed. ko1 16:06 Arm band placed on right wrist. Patient placed in waiting room, Patient notified of ko1 wait time. 16:31 CT Stone Protocol In Process Unspecified. EDMS 17:14 Yasmin Rodriguez, RN is Primary Nurse. ph 17:45 Patient has correct armband on for positive identification. Bed in low position. Call [facility] light in reach. Side rails up X 1. Client placed on continuous cardiac and pulse oximetry monitoring. NIBP monitoring applied. 17:45 Missed attempt(s): 22 gauge in right antecubital area. kc6 17:45 Patient maintains SpO2 saturation greater than 95% on room air. kc6 19:00 Report given to LALO Moser \T\ LALO Lynch. kc6 20:49 No provider procedures requiring assistance completed. IV discontinued, intact, jb4 bleeding controlled, No redness/swelling at site. Pressure dressing applied. Administered Medications: 17:30 Drug: Flomax PO 0.4 mg PO once Route: PO; kc6 19:21 Follow up: Response: No adverse reaction kc6 17:30 Drug: HYDROcodone-acetaminophen PO 5 mg-325 mg 1 tabs PO once Route: PO; kc6 19:21 Follow up: Response: No adverse reaction; Pain is decreased; RASS: Alert and Calm (0) kc6 17:30 Drug: Promethazine PO 25 mg PO once Route: PO; ph 19:21 Follow up: Response: No adverse reaction kc6 19:33 Drug: Ciprofloxacin PO 500 mg PO once Route: PO; jb4 Medication: 20:49 VIS not applicable for this client. jb4 Outcome: 20:04 Discharge ordered by . rico 21:04 Discharged to home with family, jb4 21:04 Condition: stable 21:04 Discharge instructions given to family, Instructed on discharge instructions, follow up and referral plans. medication usage, Demonstrated understanding of instructions, follow-up care, medications, Prescriptions given X 4, 21:05 Patient left the ED. jb4 Signatures: Dispatcher [employer] EDAL Judit Alvarez FNP-C VARITYPE OPERATOR-CsnYasmin Mccarty RN RN Seferino Leung RN RN jb4 Annika Lewis RN RN kc6 Olya Oates RN RN ko1 Rosetta Choudhury mg5 Corrections: (The following items were deleted from the chart) 20:50 20:45 Reassessment: Pt continues to be able to answer questions appropriately, is able jb4 to answer yes or no questions and follow commands. Is oriented x3. jb4
--- NOTE | 2023-05-18 20:04 | EDPHYS ---
Physician Documentation [facility] Name: Sea Ch Age: 82 yrs Sex: Male : 1940 Arrival Date: 05/18/2023 Time: 15:41 Bed 12 Private MD: ED Physician Ramiro Hirsch HPI: 05/18 17:17 This 82 yrs old Male presents to ER via Ambulatory with complaints of Possible Kidney snw Stone. 17:17 The patient presents with abdominal pain right lower quadrant. Onset: The snw symptoms/episode began/occurred suddenly, 2 hour(s) ago, and became persistent. The symptoms radiate to the right flank. The symptoms are described as intermittent, sharp. Severity of pain: At its worst the pain was moderate severe. The patient has experienced a previous episode. It is unknown whether or not the patient has recently seen a physician. Historical: - Allergies: 16:06 No Known Allergies; ko1 - PMHx: 16:06 Hypertensive disorder; ko1 - Immunization history:: Adult Immunizations up to date. - Social history:: Smoking status: Patient denies any tobacco usage or history of. ROS: 17:16 Constitutional: Negative for fever, chills, and weight loss, Eyes: Negative for injury, snw pain, redness, and discharge, ENT: Negative for injury, pain, and discharge, Neck: Negative for injury, pain, and swelling, Cardiovascular: Negative for chest pain, palpitations, and edema, Respiratory: Negative for shortness of breath, cough, wheezing, and pleuritic chest pain, Back: Negative for injury and pain, : Negative for injury, bleeding, discharge, and swelling, MS/Extremity: Negative for injury and deformity, Skin: Negative for injury, rash, and discoloration, Neuro: Negative for headache, weakness, numbness, tingling, and seizure, Psych: Negative for depression, anxiety, suicide ideation, homicidal ideation, and hallucinations, 17:16 Abdomen/GI: Positive for abdominal pain, nausea, of the right lower quadrant, Exam: 17:15 Constitutional: This is a well developed, well nourished patient who is awake, alert, snw and in no acute distress. Head/Face: Normocephalic, atraumatic. Eyes: Pupils equal round and reactive to light, extra-ocular motions intact. Lids and lashes normal. Conjunctiva and sclera are non-icteric and not injected. Cornea within normal limits. Periorbital areas with no swelling, redness, or edema. ENT: Nares patent. No nasal discharge, no septal abnormalities noted. Tympanic membranes are normal and external auditory canals are clear. Oropharynx with no redness, swelling, or masses, exudates, or evidence of obstruction, uvula midline. Mucous membranes moist. Neck: Trachea midline, no thyromegaly or masses palpated, and no cervical lymphadenopathy. Supple, full range of motion without nuchal rigidity, or vertebral point tenderness. No Meningismus. Chest/axilla: Normal chest wall appearance and motion. Nontender with no deformity. No lesions are appreciated. Cardiovascular: Regular rate and rhythm with a normal S1 and S2. No gallops, murmurs, or rubs. Normal PMI, no JVD. No pulse deficits. Respiratory: Lungs have equal breath sounds bilaterally, clear to auscultation and percussion. No rales, rhonchi or wheezes noted. No increased work of breathing, no retractions or nasal flaring. Abdomen/GI: Soft, non-tender, with normal bowel sounds. No distension or tympany. No guarding or rebound. No evidence of tenderness throughout. Skin: Warm, dry with normal turgor. Normal color with no rashes, no lesions, and no evidence of cellulitis. MS/ Extremity: Pulses equal, no cyanosis. Neurovascular intact. Full, normal range of motion. Neuro: Awake and alert, GCS 15, oriented to person, place, time, and situation. Cranial nerves II-XII grossly intact. Motor strength 5/5 in all extremities. Sensory grossly intact. Cerebellar exam normal. Normal gait. Psych: Awake, alert, with orientation to person, place and time. Behavior, mood, and affect are within normal limits. 17:15 Back: pain, that is moderate, of the right lower abd/flank, CVA tenderness, that is mild, that is moderate, is noted on the right, Vital Signs: 16:04 BP 164 / 85; Pulse 49; Resp 18; Temp 97.3; Pulse Ox 100% ; ko1 17:15 Weight 74.84 kg (R); Height 6 ft. 0 in. (R); kc6 18:59 BP 128 / 70; Pulse 55; Resp 18 S; Pulse Ox 95% on R/A; kc6 20:49 BP 151 / 92; Pulse 64; Resp 16; Pulse Ox 98% on R/A; jb4 17:15 Body Mass Index 22.38 (74.84 kg, 182.88 cm) kc6 MDM: 16:10 Patient medically screened. snw 18:42 Differential diagnosis: Pyelonephritis, Ureterolithiasis, urinary tract infection. Data snw reviewed: vital signs, nurses notes, lab test result(s), radiologic studies. I considered the following discharge prescriptions or medication management in the emergency department Medications were administered in the Emergency Department. See MAR. Response to treatment: the patient's symptoms have markedly improved after treatment. ED course: Pain significantly improved.. 05/18 16:44 Order name: CBC with Diff snw 05/18 16:44 Order name: Chem 7; Complete Time: 18:12 snw 05/18 15:52 Order name: CT Stone Protocol; Complete Time: 16:42 snw 05/18 18:44 Order name: VS Recheck; Complete Time: 18:59 snw Administered Medications: 17:30 Drug: Flomax PO 0.4 mg PO once Route: PO; kc6 19:21 Follow up: Response: No adverse reaction kc6 17:30 Drug: HYDROcodone-acetaminophen PO 5 mg-325 mg 1 tabs PO once Route: PO; kc6 19:21 Follow up: Response: No adverse reaction; Pain is decreased; RASS: Alert and Calm (0) kc6 17:30 Drug: Promethazine PO 25 mg PO once Route: PO; ph 19:21 Follow up: Response: No adverse reaction [facility] 19:33 Drug: Ciprofloxacin PO 500 mg PO once Route: PO; jb4 Disposition Summary: 05/18/23 20:04 Discharge Ordered Notes: Location: Home snw Condition: Stable snw Diagnosis - Hydronephrosis with renal and ureteral calculous obstruction snw Followup: snw - With: Emergency Department - When: As needed - Reason: Worsening of condition Followup: snw - With: Private Physician - When: 2 - 3 days - Reason: Recheck today's complaints, Continuance of care, Re-evaluation by your physician Discharge Instructions: - Discharge Summary Sheet snw - Hydronephrosis snw - Dietary Guidelines to Help Prevent Kidney Stones snw - Rehydration, Elderly snw Forms: - Medication Reconciliation Form snw - Thank You Letter snw - Antibiotic Education snw - Prescription Opioid Use snw - Patient Portal Instructions snw - Leadership Thank You Letter snw Prescriptions: - Flomax 0.4 mg Oral capsule - take 1 capsule ORAL route every day at bedtime for 7 days; 7 capsule; Refills: snw 0, Product Selection Permitted - Cipro 250 mg Oral Tablet - take 1 tablet ORAL route every 12 hours for 10 days; 20 tablet; Refills: 0, snw Product Selection Permitted - Diclofenac Sodium 75 mg Oral Tablet Sustained Release - take 1 tablet ORAL route 2 times per day; 30 tablet; Refills: 0, Product snw Selection Permitted - Tramadol 50 mg Oral Tablet - take 1 tablet ORAL route every 8 hours as needed; 12 tablet; Refills: 0, snw Product Selection Permitted Signatures: Dispatcher [employer] EDPR Judit Alvarez FNP-C FAMILY LIFE EDUCATOR-Csnw Yasmin Rodriguez RN RN ph Seferino Green, RN RN jb4 Annika Lewis RN RN kc6 Olya Oates RN RN ko1
[2023-05-18 21:13] LABS: Blood Morphology Comment NOT SEEN (NOT SEEN); Platelet Estimate DECR; White Blood Cell Scan OK (OK)
[2023-05-18 21:23] VITALS: TEMP 97.3
[2023-05-18 21:26] VITALS: BP 151/92; O2SAT 98
== END 2023-05-18 21:05 | disposition home or self-care (01) ==
LOC: ER 15:41
DX: N13.2 Hydronephrosis with renal and ureteral calculous obstruction (principal); I10 Essential (primary) hypertension
CPT/HCPCS: 85025; 80048; 36415; 76377; 74176; 99284; Q0169

== ENCOUNTER 2024-02-11 00:42 | Inpatient (IN) | payer OTHER ==
[2024-02-11] MEDS ORDERED: ONDANSETRON 4 MG/2 ML VIAL ONE (01:14)
[2024-02-11] MEDS ORDERED: MORPHINE 4 MG/ML SYR ONE (01:14)
[2024-02-11 01:25] LABS: Specific Gravity 1.018 (1.005-1.030); Sqamous Epithelial <5 /HPF (None Seen); Urine Bacteria None Seen /HPF (<20); Urine Bilirubin NEGATIVE (Negative); Urine Blood Negative (Negative); Urine Clarity Clear (Clear); Urine Color Light-Yellow (Yellow); Urine Culture Reflex Order NOT NEEDED; Urine Glucose 1+ (Negative); Urine Ketones 1+ (Negative); Urine Micro Reflex YN NO BILL MICROSCOPIC; Urine Mucus Slight /HPF (None Seen); Urine Nitrite NEGATIVE (Negative); Urine Protein NEGATIVE (Negative); Urine RBC <5 /HPF (None Seen); Urine Urobilinogen Normal (Normal); Urine WBC <5 /HPF (<5)
[2024-02-11 01:39] LABS: Albumin/Globulin Ratio 1.1 (1.1-1.8); Anion Gap 14.7 mEq/L (5.0-15.0); Bilirubin Direct 0.2 mg/dL (0-0.2); Bilirubin Indirect, Calculated 0.6 mg/dL (0.2-0.8); Bilirubin Total 0.8 mg/dL (0.2-1.0); Globulin 3.7 g/dL (2.3-3.5); Magnesium 1.8 mg/dL (1.6-2.4); Potassium 3.7 mEq/L (3.5-5.1); Protein, Total 7.7 g/dL (6.4-8.2)
[2024-02-11 01:41] LABS: Absolute Basophils 0.1 K/uL (0-0.5); Absolute Eosinophils 0.1 K/uL (0-0.5); Absolute Lymphocytes (CBC) 1.6 K/uL (0.7-4.9); Absolute Monocytes 0.7 K/uL (0.1-1.3); Basophils % 0.6 % (0-1.3); Eosinophils % 1.3 % (0-4.4); Hematocrit 43.7 % (39.6-49.0); Hemoglobin 14.8 g/dL (13.6-17.9); Lymphocytes % 18.7 % (15.3-44.8); MCH 31.1 pg (27.0-35.0); MCHC 33.9 g/dL (32.0-36.0); MCV 91.7 fL (80-100); MPV 10.7 fL (7.6-11.3); Monocytes % 8.7 % (3.3-12.3); Neutrophils % 70.7 % (41.7-73.7); Nucleated Red Blood Cells % 0.3 % (0-0); Platelets 139 thou/uL (152-406); RBC Red Blood Cell Count 4.76 M/uL (4.33-5.43); Red Cell Distribution Width 13.5 % (12.1-15.2)
[2024-02-11 01:52] LABS: Troponin High Sensitivity 240.9 pg/mL (<58.9)
--- NOTE | 2024-02-11 03:48 | ER ---
Nurse's Notes [facility] Name: Sea Ch Age: 83 yrs Sex: Male : 1940 Arrival Date: 02/11/2024 Time: 00:42 Bed 2 Private MD: Diagnosis: Subsequent non-ST elevation (NSTEMI) myocardial infarction Presentation: 02/10 00:50 Chief complaint: Patient states: chest/ abdominal discomfort/ burning that began ss yesterday. Pain relieved briefly yesterday after taking a dose of Pepcid. Coronavirus screen: Client denies travel out of the [place] in the last 14 days. Ebola Screen: Patient denies exposure to infectious person. Patient denies travel to an Ebola-affected area in the 21 days before illness onset. Initial Sepsis Screen: Does the patient meet any 2 criteria? No. Patient's initial sepsis screen is negative. Does the patient have a suspected source of infection? No. Patient's initial sepsis screen is negative. Risk Assessment: Do you want to hurt yourself or someone else? Patient reports no desire to harm self or others. Onset of symptoms was February 10, 2024. 00:50 Method Of Arrival: Wheelchair ss 00:50 Acuity: JANIE 3 ss Triage Assessment: 01:10 General: Appears in no apparent distress. uncomfortable, Behavior is calm, cooperative, vc1 appropriate for age. Respiratory: Onset: The symptoms/episode began/occurred yesterday, the patient has mild shortness of breath. Respiratory: Airway is patent Respiratory effort is even, unlabored, Respiratory pattern is regular, symmetrical, Breath sounds are clear bilaterally. Historical: - Allergies: 00:51 No Known Allergies; ss - PMHx: 00:51 Hypertensive disorder; ss - Immunization history:: Adult Immunizations unknown. - Infectious Disease History:: Denies. - Family history:: not pertinent. - Social history:: Smoking status: Patient denies any tobacco usage or history of. Screenin:06 [facility] ED Fall Risk Assessment (Adult) History of falling in the last 3 months, vc1 including since admission No falls in past 3 months (0 pts) Confusion or Disorientation Yes (5 pts) Intoxicated or Sedated No (0 pts) Impaired Gait No (0 pts) Mobility Assist Device Used No (0 pt) Altered Elimination No (0 pt) Score/Fall Risk Level 0 - 2 = Low Risk Oriented to surroundings, Maintained a safe environment, Educated pt \T\ family on fall prevention, incl call for assistance when getting out of bed. Abuse screen: Denies threats or abuse. Nutritional screening: No deficits noted. Tuberculosis screening: No symptoms or risk factors identified. Assessment: 01:07 General: Appears in no apparent distress. uncomfortable, slender, well groomed, well vc1 developed, well nourished, Behavior is calm, cooperative, appropriate for age. Pain: Complains of pain in chest Pain does not radiate. Neuro: Level of Consciousness is awake, alert, obeys commands, Oriented to person, place, time, situation, Appropriate for age. Cardiovascular: Heart tones S1 S2 present Capillary refill < 3 seconds Patient's skin is warm and dry. Rhythm is sinus bradycardia. Respiratory: Airway is patent Respiratory effort is even, unlabored, Respiratory pattern is regular, symmetrical, Breath sounds are clear bilaterally. GI: Abdomen is flat, non-distended, Bowel sounds present X 4 quads. Reports upper abdominal pain, indigestion. : No deficits noted. No signs and/or symptoms were reported regarding the genitourinary system. EENT: No deficits noted. No signs and/or symptoms were reported regarding the EENT system. Derm: Skin is intact, is healthy with good turgor, Skin is dry, Skin is normal, Skin temperature is warm. Musculoskeletal: No signs and/or symptoms reported regarding the musculoskeletal system. Circulation, motion, and sensation intact. Range of motion: intact in all extremities. 02:47 Reassessment: Patient appears in no apparent distress at this time. Patient and/or jb4 family updated on plan of care and expected duration. Pain level reassessed. Patient is alert, oriented x 3, equal unlabored respirations, skin warm/dry/pink. 03:29 Reassessment: Patient appears in no apparent distress at this time. No changes from vc1 previously documented assessment. Patient and/or family updated on plan of care and expected duration. Pain level reassessed. Patient is alert, oriented x 3, equal unlabored respirations, skin warm/dry/pink. 03:34 Reassessment: Shayla Buck (Sister) [phone]. 1 04:30 Reassessment: Patient appears in no apparent distress at this time. Patient and/or jb4 family updated on plan of care and expected duration. Pain level reassessed. Patient is alert, oriented x 3, equal unlabored respirations, skin warm/dry/pink. Vital Signs: 00:50 BP 154 / 86; Pulse 66; Resp 19; Pulse Ox 100% on R/A; ss 01:09 Weight 74.84 kg; Height 5 ft. 10 in. ; vc1 02:47 BP 136 / 79; Pulse 57; Resp 16; Pulse Ox 94% on R/A; jb4 03:29 BP 128 / 80; Pulse 54; Resp 16; Pulse Ox 94% on R/A; vc1 03:51 Weight 76.66 kg; jb4 01:09 Body Mass Index 23.67 (76.66 kg, 177.8 cm) vc1 ED Course: 00:42 Patient arrived in ED. jj6 00:44 Fredy Tafoya MD is Attending Physician. rt 00:51 Triage completed. ss 00:51 Arm band placed on right wrist. ss 01:05 Basic Metabolic Panel Sent. vc1 01:05 CBC with Diff Sent. vc1 01:05 LFT's Sent. vc1 01:05 Magnesium Sent. vc1 01:06 Patient has correct armband on for positive identification. Placed in gown. Bed in low vc1 position. Call light in reach. Side rails up X2. Adult w/ patient. bean sprout grower on. Pulse ox on. NIBP on. 01:06 Troponin HS Sent. vc1 02:26 CT Aorta for Dissection In Process Unspecified. EDMS 03:47 Tommie Brush MD is Hospitalizing Provider. rt Administered Medications: 01:21 Drug: morphine IVP or IV 4 mg IVP once over 4 mins Route: IVP; Infused Over: 4 mins; jb4 Site: right antecubital; 01:21 Drug: Ondansetron IVP 4 mg IVP once; over 2 minutes Route: IVP; Site: right antecubital;jb4 04:14 Drug: Heparin (NH-Bolus No thrombolytic) - HEParin IVP 60 units/kg IVP once; Max 5000 jb4 units {Co-Signature: al5 (Pam Rangel RN).} Route: IVP; Site: right antecubital; 04:14 Drug: Heparin (NH Drip) 12 units/kg/hr - ([place] [address] units, D5W IV 500 ml) IV at jb4 calculated rate Per protocol; Max initial rate 1000 units/hr {Co-Signature: al5 (Pam Rangel RN).} Route: IV; Rate: calculated rate; Site: right antecubital; Medication: 01:10 VIS not applicable for this client. vc1 Outcome: 03:48 Decision to Hospitalize by Provider. rt 05:38 Patient left the ED. ss Signatures: Dispatcher [employer] EDMS Elizabeth Torre RN RN ss Seferino Green, RN RN jb4 Juli Ortaj6 Mayte Rojas RN RN vc1 Fredy Tafoya MD MD rt Pam Rangel RN al5 Corrections: (The following items were deleted from the chart) 03:30 03:29 BP 128 / 8; Pulse 54bpm; Resp 16bpm; Pulse Ox 94% RA; vc1 vc1
--- NOTE | 2024-02-11 03:48 | EDPHYS ---
Physician Documentation [facility] Name: Sea Ch Age: 83 yrs Sex: Male : 1940 Arrival Date: 02/11/2024 Time: 00:42 Bed 2 Private MD: ED Physician Fredy Tafoya HPI: 02/10 04:11 This 83 yrs old Male presents to ER via Wheelchair with complaints of Breathing rt Difficulty, Chest Pain. 04:11 Patient presents to the ED with 1 day of upper epigastric to lower chest pain. It was rt relieved with Pepcid yesterday but then returned. Denies other acute complaints at this time, symptoms are moderate in severity, no other aggravating or elevating factors. Historical: - Allergies: 00:51 No Known Allergies; ss - PMHx: 00:51 Hypertensive disorder; ss - Immunization history:: Adult Immunizations unknown. - Infectious Disease History:: Denies. - Family history:: not pertinent. - Social history:: Smoking status: Patient denies any tobacco usage or history of. ROS: 04:11 Constitutional: Negative for fever, chills, and weight loss, Respiratory: Negative for rt shortness of breath, cough, wheezing, and pleuritic chest pain, MS/Extremity: Negative for injury and deformity, Skin: Negative for injury, rash, and discoloration, Neuro: Negative for headache, weakness, numbness, tingling, and seizure, 04:11 Cardiovascular: Positive for chest pain, Negative for edema, 04:11 Abdomen/GI: Positive for abdominal pain, Negative for nausea and vomiting, Exam: 04:11 Constitutional: This is a well developed, well nourished patient who is awake, alert, rt and in no acute distress. Head/Face: Normocephalic, atraumatic. Chest/axilla: Normal chest wall appearance and motion. Nontender with no deformity. No lesions are appreciated. Cardiovascular: Regular rate and rhythm with a normal S1 and S2. No gallops, murmurs, or rubs. Normal PMI, no JVD. No pulse deficits. Respiratory: Lungs have equal breath sounds bilaterally, clear to auscultation and percussion. No rales, rhonchi or wheezes noted. No increased work of breathing, no retractions or nasal flaring. Abdomen/GI: Soft, non-tender, with normal bowel sounds. No distension or tympany. No guarding or rebound. No evidence of tenderness throughout. Skin: Warm, dry with normal turgor. Normal color with no rashes, no lesions, and no evidence of cellulitis. MS/ Extremity: Pulses equal, no cyanosis. Neurovascular intact. Full, normal range of motion. Neuro: Awake and alert, GCS 15, oriented to person, place, time, and situation. Cranial nerves II-XII grossly intact. Motor strength 5/5 in all extremities. Sensory grossly intact. Cerebellar exam normal. Normal gait. 04:11 ECG was reviewed by the Attending Physician. Vital Signs: 00:50 BP 154 / 86; Pulse 66; Resp 19; Pulse Ox 100% on R/A; ss 01:09 Weight 74.84 kg; Height 5 ft. 10 in. ; vc1 02:47 BP 136 / 79; Pulse 57; Resp 16; Pulse Ox 94% on R/A; jb4 03:29 BP 128 / 80; Pulse 54; Resp 16; Pulse Ox 94% on R/A; vc1 03:51 Weight 76.66 kg; jb4 01:09 Body Mass Index 23.67 (76.66 kg, 177.8 cm) vc1 MDM: 00:44 Patient medically screened. rt 04:11 Differential diagnosis: ACS, coronary disease, celiac artery disease, aortic rt dissection. Data reviewed: vital signs, nurses notes, lab test result(s), EKG, radiologic studies. Consideration of Admission/Observation Patient was admitted/placed on observation. Management of patient was discussed with the following: Hospitalist: Agrees to admit. I considered the following discharge prescriptions or medication management in the emergency department Medications were administered in the Emergency Department. See MAR. Independent interpretation of the following test(s) in the Emergency Department CT Scan: My interpretation is No aortic dissection seen on interpretation of CT scan images. Care significantly affected by the following chronic conditions: Hypertension. Counseling: I had a detailed discussion with the patient and/or guardian regarding the historical points, exam findings, and any diagnostic results supporting the discharge/admit diagnosis, lab results, radiology results, the need for further work-up and treatment in the hospital. Response to treatment: the patient's symptoms have markedly improved after treatment. 02/10 00:55 Order name: Basic Metabolic Panel; Complete Time: 03:20 rt 08 00:55 Order name: CBC with Diff rt 02/10 00:55 Order name: LFT's; Complete Time: 03:20 rt 02/10 00:55 Order name: Magnesium; Complete Time: 03:20 rt 08 00:55 Order name: Troponin HS; Complete Time: 03:20 rt 02/10 00:55 Order name: Lipase; Complete Time: 03:20 rt 02/10 00:55 Order name: UAM; Complete Time: 03:20 rt 02/10 01:46 Order name: CBC Smear Scan EDMS 02/10 03:34 Order name: Ptt, Activated rt 02/10 04:28 Order name: Urinalysis w/ reflexes EDMS 02/10 04:28 Order name: CBC with Automated Diff EDMS 02/10 04:28 Order name: CBC with Automated Diff EDMS 02/10 04:28 Order name: Comprehensive Metabolic Panel EDMS 02/10 04:28 Order name: Comprehensive Metabolic Panel EDMS 02/10 04:28 Order name: Troponin High Sensitivity EDMS 02/10 04:28 Order name: Troponin High Sensitivity EDMS 02/10 04:28 Order name: Troponin High Sensitivity EDMS 02/10 04:28 Order name: Troponin High Sensitivity EDMS 02/10 04:29 Order name: Hemoglobin A1c EDMS 02/10 04:29 Order name: Lipid Profile EDMS 02/10 00:55 Order name: CT Aorta for Dissection rt 02/10 04:29 Order name: Echo with Doppler EDMS 02/10 00:55 Order name: EKG; Complete Time: 00:55 rt 02/10 04:28 Order name: CONS Physician Consult EDMS 02/10 00:55 Order name: Cardiac monitoring; Complete Time: 01:05 rt 02/10 00:55 Order name: EKG - Nurse/Tech; Complete Time: 01:05 rt 02/10 00:55 Order name: IV Saline Lock; Complete Time: 01:05 rt 02/10 00:55 Order name: Labs collected and sent; Complete Time: 01:05 rt 08 00:55 Order name: O2 Per Protocol; Complete Time: 01:05 rt 02/10 00:55 Order name: O2 Sat Monitoring; Complete Time: 01:05 rt EC:11 Rate is 61 beats/min. Rhythm is regular, Normal Sinus Rhythm with No ectopy. QRS [place] rt is Normal. [place] interval is normal. QRS interval is normal. QT interval is normal. No Q waves. No ST changes noted. Interpreted by me. Administered Medications: 01:21 Drug: morphine IVP or IV 4 mg IVP once over 4 mins Route: IVP; Infused Over: 4 mins; jb4 Site: right antecubital; 01:21 Drug: Ondansetron IVP 4 mg IVP once; over 2 minutes Route: IVP; Site: right antecubital;jb4 04:14 Drug: Heparin (OH-Bolus No thrombolytic) - HEParin IVP 60 units/kg IVP once; Max 5000 jb4 units {Co-Signature: angel (Pam Rangel RN).} Route: IVP; Site: right antecubital; 04:14 Drug: Heparin (OH Drip) 12 units/kg/[place] - ([place] [address] units, D5W IV 500 ml) IV at jb4 calculated rate Per protocol; Max initial rate 1000 units/hr {Co-Signature: angel (Pam Rangel RN).} Route: IV; Rate: calculated rate; Site: right antecubital; Disposition Summary: 02/11/24 03:48 Hospitalization Ordered Notes: Hospitalization Status: Inpatient Admission rt Provider: Tommie Brush [facility] Condition: Serious rt Problem: new rt Symptoms: have improved rt Bed/Room Type: Standard rt Room Assignment: 413(02/11/24 04:34) ss Diagnosis - Subsequent non-ST elevation (NSTEMI) myocardial infarction rt Forms: - Medication Reconciliation Form rt - SBAR form rt - Leadership Thank You Letter rt Signatures: Dispatcher [employer] Elizabeth Alatorre RN RN ss Seferino Green RN RN jb4 Mayte Rojas RN RN vc1 Fredy Tafoya MD MD rt Pam Rangel RN al5 Corrections: (The following items were deleted from the chart) 04:34 03:48 rt ss
[2024-02-11] MEDS ORDERED: HEPARIN/D5W 25,000 UNIT/500 ML BAG IV ONE (04:03)
[2024-02-11] MEDS ORDERED: HEPARIN 5000 UNIT/ML 1 ML VIAL ONE ×2 (04:03→10:39)
--- NOTE | 2024-02-11 04:21 | P.HP ---
Certification for Inpatient Patient admitted to: Inpatient With expected LOS: >2 Midnights Practitioner: I am a practitioner with admitting privileges, knowledge of patient current condition, hospital course, and medical plan of care. Services: Services provided to patient in accordance with Admission requirements found in Title 42 Section 412.3 of the Code of Federal Regulations Patient History Date of Service: 02/11/24 Reason for admission: Chest Pain History of Present Illness: 83 yo Male with past medical history of hypertension, dementia, hyperlipidemia, brought to ER with chest pain which has been going on for day. Located retrosternally. Radiating to left arm. At the time of interview pain is 3 out of 10 in severity. Denies any diaphoresis. Patient is a poor historian hence most of the history is obtained from the chart review and also talking to the sister at the bedside . He has been followed at [facility]. No previous history of CAD. Patient was assessed in the ER and was found to have elevated troponin and was admitted for further management of NSTEMI. Allergies No Known Allergies Allergy (Unverified 11/01/16 11:43) Home medications list reviewed: Yes - Past Medical/Surgical History Past Medical History: Reviewed- Non-Contributory -: Hypertension, dementia Past Surgical History: Reviewed- Non-Contributory - Family History Family History: Reviewed- Non-Contributory - Social History Smoking Status: Never smoker Review of Systems 10-point ROS is otherwise unremarkable Physical Examination - Vital Signs Temperature: 97.2 F Blood Pressure: 122/70 Pulse: 52 Respirations: 18 Pulse Ox (%): 94 - Physical Exam General: Alert, In no apparent distress, Oriented x2 HEENT: Atraumatic, Normocephalic Neck: Supple, 2+ carotid pulse no bruit Respiratory: Clear to auscultation bilaterally, Normal air movement Cardiovascular: Normal pulses, Normal S1 S2, Other (Bradycardic) Capillary refill: <2 Seconds Gastrointestinal: Soft and benign, W/out hepatosplenomegaly Musculoskeletal: No clubbing, No swelling Integumentary: No rashes, No breakdown Neurological: Normal strength at 5/5 x4 extr, Sensation intact, Cranial nerves 3-12 intact, Dementia Lymphatics: No axilla or inguinal lymphadenopathy - Studies Laboratory Data (last 24 hrs) 02/11/24 02/11/24 00:58 00:58 WBC 8.50 Hgb 14.8 Hct 43.7 Plt Count 139 L Sodium 141 Potassium 3.7 BUN 37 H Creatinine 1.24 Glucose 161 H Magnesium 1.8 Total Bilirubin 0.8 AST 24 ALT 34 Alkaline Phosphatase 118 H Lipase 51 Assessment and Plan - Plan NSTEMI Will trend cardiac enzymes Will monitor telemetry Started on aspirin and statin EKG did not show any acute changes ssuggestive of ischemia Heparin drip Will get an echocardiogram Cardiology consult Keep n.p.o. for possible LHC today Hypertension Hyperlipidemia Continue home medications and titrate as needed Dementia Supportive management Continue memantine GI/DVT prophylaxis Advanced directive full code Discharge Plan: Home Plan to discharge in: 48 Hours - Advance Directives Does patient have a Living Will: No Does patient have a Durable POA for Healthcare: No Time Spent Managing Pts Care (In Minutes): 48
[2024-02-11] MEDS ORDERED: ONDANSETRON 4 MG/2 ML VIAL IV PRN (04:22)
[2024-02-11] MEDS ORDERED: ACETAMINOPHEN 325 MG TABLET PO PRN (04:22)
[2024-02-11] MEDS ORDERED: HEPARIN/D5W 25,000 UNIT/500 ML BAG IV SCH (05:17)
[2024-02-11 05:20] LABS: Blood Morphology Comment NOT SEEN (NOT SEEN); Platelet Estimate ADEQ; White Blood Cell Scan OK (OK)
[2024-02-11] MEDS: ASPIRIN EC 81 MG TAB PO SCH (09:00)
[2024-02-11] MEDS ORDERED: HEPA 1000U/500MLS 2,000 UNIT/1,000 ML BAG IV ONE (10:38)
[2024-02-11] MEDS ORDERED: LIDOCAINE 1% 20 ML MDV ONE (10:38)
[2024-02-11] MEDS ORDERED: FENTANYL CITR 100 MCG/2 ML ONE (10:39)
[2024-02-11] MEDS ORDERED: MIDAZOLAM HCL 2 MG/2 ML INJ ONE (10:39)
[2024-02-11] MEDS ORDERED: ATROPINE SULF 1 MG/10 ML SYR IV ONE (10:39)
[2024-02-11] MEDS ORDERED: HEPARIN 10,000 UNIT/10 ML VIAL IV ONE (10:40)
[2024-02-11] MEDS ORDERED: ASPIRIN 325 MG TAB ONE (10:40)
[2024-02-11] MEDS ORDERED: TICAGRELOR 90 MG TABLET PO ONE (10:40)
[2024-02-11] MEDS ORDERED: CLOPIDOGREL 75 MG TABLET ONE (10:40)
[2024-02-11] MEDS: NA CHLORIDE 0.9% 1,000 ML IV SCH (10:45)
--- NOTE | 2024-02-11 12:56 | P.CNS ---
Date of Consult: 02/11/24 Chief Complaint: Chest Pain History of Present Illness: Patient with PMH of advanced dementia, HTN, HLD presented with chest pressure sensation that has been going on for few days, patient got advanced dementia so history was taken from family, report chest pain, mid chest, pressure, no radiation, no dizzy spells, no syncope. Allergies No Known Allergies Allergy (Unverified 11/01/16 11:43) Home medications list reviewed: Yes - Past Medical/Surgical History -: Hypertension, dementia - Social History Place of Residence: Home Review of Systems 10-point ROS is otherwise unremarkable Physical Examination Temp Pulse Resp BP Pulse Ox 96.1 F L 50 16 153/72 H 100 02/11/24 12:00 02/11/24 12:00 02/11/24 12:00 02/11/24 12:00 02/11/24 12:00 General: Alert, In no apparent distress HEENT: Atraumatic, PERRLA, Mucous membr. moist/pink, EOMI, Sclerae nonicteric Neck: Supple, 2+ carotid pulse no bruit, No LAD, Without JVD or thyroid abnormality Respiratory: Clear to auscultation bilaterally, Normal air movement Cardiovascular: Regular rate/rhythm, Normal S1 S2 Gastrointestinal: Normal bowel sounds, No tenderness Musculoskeletal: No tenderness Integumentary: No rashes Neurological: Normal gait, Normal speech, Normal tone, Normal affect Lymphatics: No axilla or inguinal lymphadenopathy Laboratory Data (last 24 hrs) 02/11/24 02/11/24 02/11/24 03:47 00:58 00:58 WBC 8.50 Hgb 14.8 Hct 43.7 Plt Count 139 L APTT 31.4 Sodium 141 Potassium 3.7 BUN 37 H Creatinine 1.24 Glucose 161 H Magnesium 1.8 Total Bilirubin 0.8 AST 24 ALT 34 Alkaline Phosphatase 118 H Lipase 51 - Problems (1) NSTEMI (non-ST elevated myocardial infarction) Current Visit: Yes Status: Acute Plan: Patient had significant leak in troponin, coronary angiogram done and shown significant proximal to mid LAD disease s/p PCI with Synergy 3.0x16 mm JOVAN. ASA 81 mg daily for life. Brilinta 90 mg o BID for 12 months Lipitor 40 mg daily (2) HTN (hypertension) Current Visit: Yes Status: Acute Plan: start coreg 3.125 mg po BID start lisinopril 2.5 mg daily (3) HLD (hyperlipidemia) Current Visit: Yes Status: Acute Plan: Lipitor 40 mg daily
--- NOTE | 2024-02-11 16:43 | P.PN ---
Date of Service: 02/11/24 Patient seen and examined. He appears to have aphasia. He was complaining of chest pain. Troponin trended up significantly. Patient seen by cardiology, cardiac cath performed and LAD stented. Patient started on aspirin and Brilinta. Patient is bradycardic and may not tolerate beta-heri. LDL is above target. Continue Lipitor. Monitor overnight Continue telemetry.
[2024-02-11] MEDS ORDERED: MEMANTINE HCL 21 MG PO SCH (16:45)
--- NOTE | 2024-02-11 17:45 | EKG ---
Test Date: 2024-02-11 Test Time: 00:55:54 Certified Professional Controller: RIOS MEASUREMENT RESULTS: Intervals: Rate: 61 NH: 150 QRSD: 86 QT: 420 QTc: 422 [place]: P: 59 NH: 150 QRS: -29 T: 55 INTERPRETIVE STATEMENTS: Normal sinus rhythm Septal infarct, age undetermined Abnormal ECG Compared to ECG 07/24/2020 22:04:17 Myocardial infarct finding now present Sinus bradycardia no longer present Sinus arrhythmia no longer present Short NH interval no longer present Left-axis deviation no longer present Electronically Signed On 02-11-24 17:44:11 CDT by Luis Eduardo River
--- NOTE | 2024-02-11 19:17 | OP ---
Date of Procedure: 02/11/2024 Surgeon: Luis Eduardo River Procedures Performed: 1.Left heart catheterization. 2.Selective cholangiogram. 3.PCI of the LAD with Synergy 3.0 x 16 mm drug-eluting stent. Indication For Procedure: [id number] [place]. Complications: None. Estimated Blood Loss: Less than 50 cc. Access: Right radial, closed by TR band. Sedation Time: 30 minutes with 1 of Versed and 25 of fentanyl. Description Of Procedure: After risks, benefits, and alternatives were explained to the patient, the patient agreed to proceed with procedure and signed informed consent. The patient was brought back to the labor conciliator, prepped and draped in a sterile fashion. Time-out was performed. Sedation was admi nistered. Next, right radial ultrasound-guided access was obtained. [place] 4 catheter was advanced o ag J-wire to the LV cavity. LVEDP was obtained. Pullback did not show any gradient. Same catheter was used for selective angiogram of the left and right coronary systems. That catheter was later ex changed for an XB LAD 3.0 mm guide. Heparin was administered. ACT was therapeutic. Runthrough wire was used to pass the LAD lesions, pre-dilated the lesions with NC 2.5/3.0 mm balloon. Next, Synergy 3.0 x 16 mm drug-eluting stent was placed to close the lesion. This was post-dilated with an NC 3.2 5 mm balloon. Final angiogram shows JEANNETTE-3 flow. Catheter was removed over a J-wire. Sheath was re moved and TR band was applied. Hemostasis achieved. The patient was moved back to recovery in stabl e condition. Findings: 1.Left main, normal. 2.LAD, proximal mild luminal irregularities with a proximal to mid 95% disease, status post PCI with Synergy 3.0 x 16 mm drug-eluting stent, distal mild luminal irregularities. 3.Left circ, proximal 60% disease, then mid 70% disease at the origin of OM1, and that OM got ostial 70% disease and then distal to mild luminal irregularities. 4.RCA, large, dominant, proximal 40% disease and mild luminal irregularities. 5.LVEDP 7 mmHg. Assessment: 1.Significant proximal to mid LAD disease, status post PCI with Synergy 3.0 x 16 mm drug-eluting gala nt. 2.Significant mid left circ/ostial OM1 bifurcation disease, small arteries and complex for intervent ion. Recommend medical management although this patient is symptomatic. Plan: 1.Plan will be aspirin 81 mg daily for life. 2.Brilinta 90 mg p.o. b.i.d. to be continued, Brilinta 180 x1 was given in the labor conciliator. 3.Continue aggressive medical treatment for CAD. ALVIN Voice ID: [id number] Report ID: [id number]
--- NOTE | 2024-02-11 20:08 | RAD REPORT ---
EXAM DESCRIPTION: Angio Aorta For Dissection 02/11/2024 2:53 AM CDT CLINICAL HISTORY: 83 years, Male, chest, abd pain, history of celiac artery dissection COMPARISON: 04/22/2023 TECHNIQUE: Multiple transaxial tomograms of the thoracic and abdominal aorta were performed utilizin g 3 mm slight thickness at 3 mm mm interval reconstruction, from the lung apices to the ischial tuber osities, before and after the administration of large bolus of IV contrast for complete opacification of the thoracic, abdominal aorta and iliac arteries. 2-D and 3-D multiplanar reformats, volume rendering technique and maximum intensity projection images were generated and reviewed. An individualized dose optimization technique, Automated Exposure Control, was utilized for the perfo rmed procedure. FINDINGS: Thoracic aorta/great vessels: Atherosclerotic calcifications in the aortic arch without aneurysmal dilatation or evidence of diss ection. There is normal branching pattern of the proximal great vessels with no evidence for signific ant stenosis and/or proximal occlusion Aorta/iliac arteries: The visualized abdominal aorta is patent without significant aneurysmal dilatation or evidence of dis section. No significant atherosclerotic calcifications. Bilateral common iliac arteries are patent wi thout significant atherosclerotic disease or stenosis. No dissection or aneurysm appreciated.. 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 The superior mesenteric and inferior mesenteric artery demonstrate to be patent with no evidence for significant stenosis and/or occlusion. There are single bilateral renal arteries with no significant abnormalities. Chest: Lower neck: Visualized thyroid gland and soft tissues are normal. No adenopathy. Lungs: The lung parenchyma demonstrate to be clear. Minimal compressive atelectatic changes lung base s and/or minimal area of scarring. No evidence of airspace or interstitial process. No significant pu lmonary nodules and/or masses identified. No focal areas of consolidation. Airways: The trachea mainstem bronchus demonstrate to be unremarkable. Pleural: There are no pleural effusion. No evidence for pneumothorax. Hemidiaphragms are normally pos itioned. Mediastinum and lymph nodes: No significant mediastinal and/or hilar lymphadenopathy. The axillary re gions demonstrate to be clear. Heart: Normal size. No pericardial thickening or effusion. Coronary: Moderate coronary calcification. Pulmonary arteries: The central pulmonary arteries demonstrate to be within normal limits. No evidenc e for significant central filling defect to suggest pulmonary embolus. Osseous structures and chest wall: There is anterior spondylosis within the mid/lower thoracic spine. Abdomen and pelvis: Liver: The liver demonstrates to be normal. There is a peripheral enhancing lesion within the dome of the liver measuring approximately 4.1 x 2[address] series #401 image 80/211 suggesting the possibi lity of perhaps a hemangioma, unchanged in comparison with prior study. Gallbladder: The gallbladder demonstrate to be normal. Adrenal glands: The adrenal glands demonstrate to be normal. Pancreas: The pancreas demonstrate to be normal. Spleen: The spleen demonstrate to be within normal limits. Kidneys: The kidneys demonstrate normal uptake of contrast media. There is no evidence for nephroli thiasis and/or hydronephrosis. GI: Grossly the unopacified stomach, small bowel and large bowel demonstrate to be within normal limi ts. No evidence for bowel dilatation and/or free air. The appendix is normal. The left-sided colon/si gmoid colon demonstrates presence of diverticulosis. : The urinary bladder demonstrate suboptimal distention. Genitalia: Prostate gland was not visualized corresponding to most likely previous prostatectomy. Retroperitoneum: There is no retroperitoneal lymphadenopathy. There is no evidence for ascites and/or abnormal fluid collections. Bones: The bony structures demonstrate to be within normal limits. No evidence for compression deform ity and/or significant skeletal lesions. Soft tissues: Small right inguinal hernia containing omentum. IMPRESSION: No evidence for significant central pulmonary embolus. No evidence of thoracic or abdominal aortic dissection or aneurysm. Coronary artery calcifications. 4.1 x 2.3 cm peripheral enhancing lesion within the dome of the liver suggesting the possibility of p erhaps a hemangioma, unchanged in comparison with prior study. Small right inguinal hernia containing omentum. Electronically signed by: Brian Shirley MD 02/11/2024 03:00 AM CDT Due to temporary technical issues with the PACS/Fluency reporting system, reports are being signed by the in house radiologists without review as a courtesy to insure prompt reporting. The interpreting radiologist is fully responsible for the content of the report.
[2024-02-11] MEDS: TAMSULOSIN 0.4 MG SR CAP PO SCH (20:13)
[2024-02-11] MEDS: ATORVASTATIN 40 MG TAB PO SCH (20:13)
[2024-02-11] MEDS: TICAGRELOR 90 MG TABLET PO SCH (20:13)
[2024-02-12 05:22] VITALS: BMI 29.5
[2024-02-12 07:27] LABS: Absolute Eosinophils 0.1 K/uL (0-0.5); Absolute Lymphocytes (CBC) 0.7 K/uL (0.7-4.9); Absolute Monocytes 0.8 K/uL (0.1-1.3); Absolute Neutrophil 6.1 K/uL (1.8-8.0); Basophils % 0.3 % (0-1.3); Eosinophils % 0.7 % (0-4.4); Hematocrit 41.1 % (39.6-49.0); Hemoglobin 13.7 g/dL (13.6-17.9); MCH 30.5 pg (27.0-35.0); MCHC 33.3 g/dL (32.0-36.0); MCV 91.4 fL (80-100); MPV 10.4 fL (7.6-11.3); Monocytes % 10.8 % (3.3-12.3); Neutrophils % 79.2 % (41.7-73.7); Platelets 125 thou/uL (152-406); RBC Red Blood Cell Count 4.49 M/uL (4.33-5.43); Red Cell Distribution Width 13.3 % (12.1-15.2)
[2024-02-12 07:48] LABS: Albumin 3.3 g/dL (3.4-5.0); Anion Gap 10.9 mEq/L (5.0-15.0); Bilirubin Total 1.7 mg/dL (0.2-1.0); Globulin 3.3 g/dL (2.3-3.5); Potassium 3.9 mEq/L (3.5-5.1); Protein, Total 6.6 g/dL (6.4-8.2)
[2024-02-12 08:15] VITALS: BP 124/65; TEMP 97.1
[2024-02-12] MEDS: POTASSIUM CL SA 10 MEQ TAB PO ONE (08:49)
[2024-02-12] MEDS: METOPROLOL XL 25 MG TAB PO SCH (08:49)
[2024-02-12 09:10] VITALS: O2SAT 99
--- NOTE | 2024-02-12 10:31 | P.DS ---
Admission Date: 02/11/24 Discharge Date: 02/12/24 Disposition: ROUTINE DISCHARGE Discharge Condition: FAIR Reason for Admission: Chest Pain - Problems (1) Dementia Status: Acute (2) HLD (hyperlipidemia) Status: Acute (3) HTN (hypertension) Status: Acute (4) NSTEMI (non-ST elevated myocardial infarction) Status: Acute Brief History of Present Illness: 83 yo Male with past medical history of hypertension, dementia, hyperlipidemia, was brought to ER with chest pain which has been going on for 1 day. Chest pain located retrosternally and radiates to left arm. No previous history of CAD. Patient was assessed in the ER and was found to have elevated troponin and was admitted for further management of NSTEMI. Hospital Course: Patient was admitted to the medical floor and started on heparin [place]. [place] [address]. Patient was seen and evaluated by cardiology Dr. River, cardiac catheterization was done and patient mid LAD was stented. Patient symptoms resolved. Patient was placed on aspirin Brilinta and Lipitor. He was monitored overnight as inpatient with no event. Patient tolerated his diet, currently asymptomatic, with stable vitals. Patient evaluated by cardiology and deemed stable for discharge. Vital Signs/Physical Exam: Temp Pulse Resp BP Pulse Ox 97.1 F 56 18 124/65 99 02/12/24 08:00 02/12/24 08:49 02/12/24 08:00 02/12/24 08:00 02/12/24 08:00 General: Alert, In no apparent distress, Oriented x3 HEENT: Mucous membr. moist/pink Neck: Supple, JVD not distended Respiratory: Clear to auscultation bilaterally, Normal air movement Cardiovascular: No edema, Regular rate/rhythm, Normal S1 S2 Gastrointestinal: Normal bowel sounds, Soft and benign, Non-distended, No tenderness Musculoskeletal: No swelling, No tenderness Integumentary: No rashes, No cyanosis Neurological: Normal strength at 5/5 x4 extr Laboratory Data at Discharge: WBC 7.70 thou/uL (4.3-10.9) 02/12/24 07:07 Hgb 13.7 g/dL (13.6-17.9) 02/12/24 07:07 Hct 41.1 % (39.6-49.0) 02/12/24 07:07 Plt Count 125 thou/uL (152-406) L 02/12/24 07:07 APTT 27.3 SECONDS (24.3-36.9) 02/12/24 07:07 Sodium 140 mEq/L (136-145) 02/12/24 07:07 Potassium 3.9 mEq/L (3.5-5.1) 02/12/24 07:07 BUN 27 mg/dL (7-18) H 02/12/24 07:07 Creatinine 1.14 mg/dL (0.70-1.30) 02/12/24 07:07 Glucose 118 mg/dL (74-106) H 02/12/24 07:07 Magnesium 1.8 mg/dL (1.6-2.4) 02/11/24 00:58 Total Bilirubin 1.7 mg/dL (0.2-1.0) H 02/12/24 07:07 AST 108 U/L (15-37) H 02/12/24 07:07 ALT 39 U/L (16-61) 02/12/24 07:07 Alkaline Phosphatase 99 U/L (45-117) 02/12/24 07:07 Triglycerides 80 mg/dL (<150) 02/11/24 06:22 Cholesterol 186 mg/dL (<200) 02/11/24 06:22 HDL Cholesterol 46 mg/dL (40-60) 02/11/24 06:22 Cholesterol/HDL Ratio 4.04 02/11/24 06:22 Lipase 51 U/L (13-75) 02/11/24 00:58 Home Medications: Amlodipine [Norvasc*] 5 mg PO DAILY 02/11/24 Memantine HCl [Memantine HCl ER] 1 tab PO ONCE 02/11/24 Metoprolol Succinate [Toprol Xl*] 25 mg PO DAILY 02/11/24 Tamsulosin HCl 0.4 mg PO ONCE 02/11/24 Aspirin [Aspirin EC 81 MG] 1 tab PO ONCE #30 tab 02/12/24 Atorvastatin Calcium [Lipitor] 40 mg PO BEDTIME #30 tab 02/12/24 Ticagrelor [Brilinta*] 90 mg PO BID #60 tab 02/12/24 New Medications: Aspirin [Aspirin EC 81 MG] 1 tab PO ONCE #30 tab Ticagrelor [Brilinta*] 90 mg PO BID #60 tab Atorvastatin Calcium [Lipitor] 40 mg PO BEDTIME #30 tab Diet: AHA Activity: Fall precautions Followup: Saulo Banks MD [Primary Care Provider] - 1-2 Weeks Luis Eduardo River MD [ACTIVE - CAN ADMIT] - 1-2 Weeks Time spent managing pt's care (in minutes): 33
--- NOTE | 2024-02-12 12:28 | P.PN ---
Subjective Date of Service: 02/12/24 Chief Complaint: Chest Pain Subjective: No new changes, No C/O voiced, Tolerating diet, Ambulating, Improving Review of Systems 10-point ROS is otherwise unremarkable Physical Examination - Vital Signs Temperature: 97.1 F Blood Pressure: 124/65 Pulse: 56 Respirations: 18 Pulse Ox (%): 99 - Physical Exam General: Alert, In no apparent distress HEENT: Atraumatic, PERRLA, EOMI Neck: Supple, JVD not distended Respiratory: Clear to auscultation bilaterally, Normal air movement Cardiovascular: Regular rate/rhythm, Normal S1 S2 Gastrointestinal: Normal bowel sounds, No tenderness Musculoskeletal: No tenderness Integumentary: No rashes Neurological: Normal speech, Normal tone, Normal affect Lymphatics: No axilla or inguinal lymphadenopathy - Studies Medications List Reviewed: Yes Assessment And Plan - Current Problems (Diagnosis) (1) NSTEMI (non-ST elevated myocardial infarction) Current Visit: Yes Status: Acute Plan: Patient had significant leak in troponin, coronary angiogram done and shown significant proximal to mid LAD disease s/p PCI with Synergy 3.0x16 mm JOVAN. ASA 81 mg daily for life. Brilinta 90 mg o BID for 12 months Lipitor 40 mg daily (2) HTN (hypertension) Current Visit: Yes Status: Acute Plan: continue toprol XL 25 mg daily start lisinopril 2.5 mg daily (3) HLD (hyperlipidemia) Current Visit: Yes Status: Acute Plan: Lipitor 40 mg daily
== END 2024-02-12 12:50 | disposition home or self-care (01) | DRG 322 ==
LOC: ER 00:42 → 4TH 04:22
PROVIDERS: ADMIT Family Medicine; ATTEND Internal Medicine
PROC: 027034Z Dilation of Coronary Artery, One Artery with Drug-eluting Intraluminal Device, Percutaneous Approach (ICD-10-PCS; principal; 2024-02-11)
PROC: 4A023N7 Measurement of Cardiac Sampling and Pressure, Left Heart, Percutaneous Approach (ICD-10-PCS; 2024-02-11)
PROC: B2111ZZ Fluoroscopy of Multiple Coronary Arteries using Low Osmolar Contrast (ICD-10-PCS; 2024-02-11)
DX: I21.4 Non-ST elevation (NSTEMI) myocardial infarction (principal); E78.5 Hyperlipidemia, unspecified; F03.90 Unspecified dementia, unspecified severity, without behavioral disturbance, psychotic disturbance, mood disturbance, and anxiety; I10 Essential (primary) hypertension
CPT/HCPCS: 36415; 71275; 74175; 76937; 80048; 80053; 80061; 80076; 81001; 83036; 83690; 83735; 84484; 85025; 85347; 85730; 93005; 93458; 94760; 96374; 96375; 99152; 99153; 99285; C1725; C1877; C1893; C9600; J0461; J1644; J2001; J2250; J2405; J3010; J7030; Q9966; Q9967

== ENCOUNTER 2024-03-18 11:31 | Day surgery (SDC) | payer OTHER ==
[2024-03-17 09:30] LABS: PT Prothrombin Time 12.5 SECONDS (9.4-12.5); PTT, Activated Partial Thromb 30.7 SECONDS (24.3-36.9); Protime INR 1.12
[2024-03-18] MEDS ORDERED: ONDANSETRON 4 MG/2 ML VIAL ONE (11:45)
[2024-03-18] MEDS ORDERED: propofoL 200 MG/20 ML VIAL IV ONE ×2 (11:45→12:17)
[2024-03-18] MEDS ORDERED: LIDOCAINE 2% MPF 5 ML VIAL ONE (11:45)
[2024-03-18] MEDS ORDERED: FENTANYL CITR 100 MCG/2 ML ONE (11:45)
[2024-03-18] MEDS ORDERED: CEFAZOLIN SODIUM 2 GM/VIAL ONE (11:46)
[2024-03-18] MEDS ORDERED: Ringers Lactate 1,000 ML IV ONE (11:46)
[2024-03-18] MEDS ORDERED: LIDOCAINE HCL/EPINEPHRINE 20 ML MDV ONE (12:03)
[2024-03-18] MEDS ORDERED: EPHEDRINE SULF 50 MG/ML VIAL ONE (12:46)
[2024-03-18] MEDS ORDERED: CEFAZOLIN SODIUM 2 GM/VIAL IVPB ONE (12:57)
[2024-03-18] MEDS ORDERED: LIDOCAINE HCL/EPINEPHRINE 20 ML MDV IJ ONE (13:06)
--- NOTE | 2024-03-18 13:33 | P.OP ---
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
[2024-03-18 15:31] VITALS: BP 122/62; O2SAT 98
[2024-03-18 15:32] VITALS: TEMP 97
--- NOTE | 2024-03-18 19:24 | OP ---
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 Postoperative Diagnosis: Vertex of scalp skin cancer, squamous variety. Procedures Performed: 1.Wide local excision of vertex of scalp skin cancer. 2.Application of Stravix umbilical cord tissue graft. Anesthesia: MAC plus local with 1% lidocaine with epinephrine. Estimated Blood Loss: Less than 2 cc. Specimen: Skin lesion. Findings: 3 cm x 5 cm skin lesion at the vertex of the scalp. Complications: None. Implants: Stravix umbilical graft 18 units utilized. Disposition: The patient was transferred to recovery room in good condition. Procedure In Detail: After informed consent was obtained, the patient was brought to the operating r oom, prepped and draped in the usual sterile fashion. After adequate anesthesia was achieved, I sandra rcated an area where a previous biopsy had been performed which is biopsy-proven squamous cell skin c ancer. Based on this, I made 1 cm margin as the margins were positive around this area and the verte x of the scalp, and as such, I made a circumferential elongated elliptical type incision orientation with 3 cm x 5 cm orientation to include at least 1 cm margin circumferentially around to ensure negat brenton margins, at this point. I then dissected down using a 15 blade circumferentially down through th e tissues down to overlying the galea, but not involving the galea of the scalp. At this point, I re moved this using a combination of electrocautery and sharp dissection circumferentially around to rem ove the skin ellipse. At this point, marking sutures were placed, sent off for pathologic examinatio n after the specimens were ligated. The area was copiously irrigated. Hemostasis was achieved with electrocautery of the area. The wound was cleansed once again. The Stravix umbilical cord graft was then brought in and fenestrated at the table side and ultimately placed into the wound bed, sized ap propriately, trimmed appropriately, and then secured to the scalp using interrupted 3-0 PDS sutures w ith good apposition of the tissue and a sterile dressing of moist saline gauze placed on top. The pa tient tolerated the procedure well without incident or complication, transferred to PACU in good cond ition. All counts were correct at the end of the case. TK/MODL Voice ID: [id number] Report ID: [id number]
== END 2024-03-18 15:16 | disposition home or self-care (01) ==
LOC: DS 11:31
PROVIDERS: ATTEND Surgery
PROC: 0HR0XK3 Replacement of Scalp Skin with Nonautologous Tissue Substitute, Full Thickness, External Approach (ICD-10-PCS; principal; 2024-03-18 13:15)
DX: D04.4 Carcinoma in situ of skin of scalp and neck (principal)
CPT/HCPCS: 36415; 85610; 85730; 88305; J2001; J2405; J2704; J3010; J7120

== ENCOUNTER 2024-03-25 12:55 | Day surgery (SDC) | payer OTHER ==
[2024-03-25] MEDS ORDERED: CEFAZOLIN SODIUM 2 GM/VIAL ONE (13:25)
[2024-03-25 13:26] VITALS: TEMP 97.6
[2024-03-25] MEDS ORDERED: Ringers Lactate 1,000 ML IV ONE (13:26)
[2024-03-25] MEDS ORDERED: LIDOCAINE HCL/EPINEPHRINE 20 ML MDV ONE (13:59)
[2024-03-25] MEDS ORDERED: LIDOCAINE 1% MPF 5 ML VIAL ONE (14:13)
[2024-03-25] MEDS ORDERED: propofoL 200 MG/20 ML VIAL IV ONE ×2 (14:13→15:38)
[2024-03-25] MEDS ORDERED: FENTANYL CITR 100 MCG/2 ML ONE (14:14)
--- NOTE | 2024-03-25 15:59 | P.OP ---
Preoperative diagnosis: Vertex of Scalp Skin Cancer Postoperative diagnosis: Vertex of Scalp Skin Cancer Primary procedure: Wide local excision of Vertex of Scalp Skin Cancer Secondary procedure: Frozen Section Utilized Anesthesia: MAC + Local Estimated blood loss: <5cc Specimen: Vertex of scalp specimen x 2 Findings: Negative Margins on Frozen Complications: None Implants: Stravix 3x6 (#2) Umbilical Grafts Transferred to: Recovery Room Condition: Good
[2024-03-25 16:43] VITALS: O2SAT 100
[2024-03-25 16:44] VITALS: BP 137/60
--- NOTE | 2024-03-26 01:11 | OP ---
Date of Procedure: 03/25/2024 Surgeon: Amado Felton MD, Preoperative Diagnosis: Vertex of scalp skin cancer. Postoperative Diagnosis: Vertex of scalp skin cancer. Procedure: Wide local excision of vertex of scalp skin cancer with frozen section. Anesthesia: MAC plus local 1% lidocaine with epinephrine. Estimated Blood Loss: 5 cc. Specimens: Vertex of scalp skin specimen x2. Findings: Negative margins at the end of resection using frozen section confirmation. Complications: None. Implants: Stravix 3 cm x 6 cm umbilical graft x2 grafts utilized. The patient transferred to [facility] room in good condition. Procedure In Detail: After informed consent was obtained, patient brought to the operating room, pre pped in the usual sterile fashion. After adequate anesthesia was achieved, a previous graft of Strav ix was removed at this area with good healthy tissue underneath. I then removed all the sutures in t his area and cleansed the area. I then proceeded to take an additional ellipse of right lateral jeanne in and placed marking suture, sent for pathologic examination of frozen section. Frozen section was indeterminate at the anterior lateral margin. As such, additional margin was taken and this was sent off for pathologic frozen section examination, which confirmed negative margins. At this time, the area was copiously irrigated. At this point, hemostasis was achieved with electrocautery and the wou nd was covered with interrupted 3 x 6 Stravix umbilical cord grafts x2. Two grafts were sewn togethe r in the middle, fenestrated, and secured using 3-0 Prolene suture circumferentially around and a gala rile dressing was placed over top. The patient tolerated procedure without incident or complication and transferred to PACU in good condition. All counts were correct at the end of the case. PAULY/LYLA Voice ID: [id number] Report ID: [id number]
== END 2024-03-25 16:45 | disposition home or self-care (01) ==
LOC: OR 12:55
PROVIDERS: ATTEND Surgery
PROC: 0JB00ZZ Excision of Scalp Subcutaneous Tissue and Fascia, Open Approach (ICD-10-PCS; 2024-03-25)
PROC: 0HR0XK3 Replacement of Scalp Skin with Nonautologous Tissue Substitute, Full Thickness, External Approach (ICD-10-PCS; 2024-03-25)
PROC: 0JB00ZZ Excision of Scalp Subcutaneous Tissue and Fascia, Open Approach (ICD-10-PCS; principal; 2024-03-25 14:45)
DX: D04.4 Carcinoma in situ of skin of scalp and neck (principal); L57.0 Actinic keratosis
CPT/HCPCS: 88331; 88305; 11626; 11424; 15275; J2704 ×2; J2001; J3010; J7120; 88332; Q4133

== ENCOUNTER 2024-08-16 15:03 | Emergency (ER) | payer OTHER ==
--- NOTE | 2024-08-16 15:39 | RAD REPORT ---
EXAM: CT brain without contrast HISTORY: Aphasia. COMPARISON: 2020 TECHNIQUE: Multiple contiguous axial images were obtained and a CT of the brain without contrast. Sagittal and coronal reformats were performed. Automated exposure control, adjustment of the mA and/or kV according to patient size, and/or itera tive reconstruction. Unless otherwise specified, incidental findings do not require dedicated imaging follow-u FINDINGS: An intracranial bleed is not seen Ventricles are normal caliber No extra-axial fluid collection noted Prominent cerebral atrophy. No significant hypodensity within the brain No fluid within the visualized sinuses or mastoids noted. IMPRESSION: No acute intracranial abnormality noted. If the patient's symptoms persist MRI of the brain would be recommended. from the emergency room was notified at 3:32 PM August 16, 2024
--- NOTE | 2024-08-16 15:46 | RAD REPORT ---
EXAMINATION: CTA HEAD CLINICAL INDICATION:Aphasia. TECHNIQUE: Axial CT images were obtained through the head after 100 cc Isovue-370 intravenous contras t utilizing angiographic protocol with 3D post-processing (maximum intensity projection images, volume rendered images and/or shaded surface rendered images). One or more of the following dose red uction techniques were used: Automated exposure control, adjustment of the mA and/or kV according to patient size, and/or iterative reconstruction. Unless otherwise specified, incidental findings do not require dedicated imaging follow-up. COMPARISON: None FINDINGS: Distal internal carotid, basilar, anterior cerebral, middle cerebral and posterior cerebral arteries do not demonstrate a significant stenosis An aneurysm not noted. No large vessel occlusion IMPRESSION: No acute vascular abnormality displayed
--- NOTE | 2024-08-16 15:46 | RAD REPORT ---
EXAMINATION: Neck Angio CLINICAL INDICATION: Aphasia. TECHNIQUE: Axial CT images were obtained from the aortic arch to the skull base after intravenous adm inistration of 100 cc Isovue-370 utilizing angiographic protocol. Multiplanar reformats, as well as 3D post-processing (maximum intensity projection images, volume rendered images and/or shaded surface rendered images) were generated and reviewed. One or more of the following dose reduction techniques were used: Automated exposure control, adjustment of the mA and/or kV according to patient size, and/or iterative reconstruction. Unless otherwise specified, incidental findings do not require dedicated imaging follow-up. COMPARISON: No prior exam. FINDINGS: The visualized aortic arch and great vessels do not demonstrate a significant abnormality Mild plaque within common carotid, internal carotid and external carotid arteries bilaterally. Mild plaque within the vertebral arteries. No significant stenosis noted. A dissection is not seen. Methods for NASCET criteria: Mild stenosis, 0% to 49%; Moderate stenosis 50% to 69%; Severe stenosis, 70% to 99% IMPRESSION: No acute vascular abnormality displayed
[2024-08-16 15:56] LABS: Absolute Eosinophils 0.1 K/uL (0-0.5); Absolute Lymphocytes (CBC) 1.1 K/uL (0.7-4.9); Absolute Monocytes 0.7 K/uL (0.1-1.3); Absolute Neutrophil 4.9 K/uL (1.8-8.0); Basophils % 0.4 % (0-1.3); Eosinophils % 1.1 % (0-4.4); Hemoglobin 14.5 g/dL (13.6-17.9); MCH 31.7 pg (27.0-35.0); MCHC 33.8 g/dL (32.0-36.0); MCV 93.7 fL (80-100); MPV 10.3 fL (7.6-11.3); Neutrophils % 72.5 % (41.7-73.7); Nucleated Red Blood Cells % 0.1 % (0-0); Platelets 131 thou/uL (152-406); RBC Red Blood Cell Count 4.59 M/uL (4.33-5.43); Red Cell Distribution Width 13.3 % (12.1-15.2)
[2024-08-16] MEDS ORDERED: FOLIC ACID 5 MG/ML VIAL ONE (16:05)
[2024-08-16] MEDS ORDERED: NA CHLORIDE 0.9% 1,000 ML ONE ×2 (16:05→17:28)
[2024-08-16 16:08] LABS: PT Prothrombin Time 12.1 SECONDS (10.0-13.0); Protime INR 1.06
[2024-08-16] MEDS ORDERED: MECLIZINE HCL 12.5 MG TAB ONE (16:09)
[2024-08-16] MEDS ORDERED: ASPIRIN EC 81 MG TAB PO ONE (16:09)
[2024-08-16 16:21] LABS: ALT/SGPT 35 U/L (16-61); AST/SGOT 17 U/L (15-37); Albumin 3.7 g/dL (3.4-5.0); Albumin/Globulin Ratio 1.1 (1.1-1.8); Alkaline Phosphatase 124 U/L (45-117); Anion Gap 9.7 mEq/L (5.0-15.0); BUN Blood Urea Nitrogen 60 mg/dL (7-18); Bicarbonate 27 mEq/L (21-32); Bilirubin Direct 0.2 mg/dL (0-0.2); Bilirubin Indirect, Calculated 0.8 mg/dL (0.2-0.8); Globulin 3.5 g/dL (2.3-3.5); Glomerular Filtration Rate 38 ml/min (=/>90); Glucose Level 151 mg/dL (74-106); Magnesium 2.3 mg/dL (1.6-2.4); NT PRO-BNP 505 pg/mL (<450); Potassium 3.7 mEq/L (3.5-5.1); Protein, Total 7.2 g/dL (6.4-8.2); Sodium Level 143 mEq/L (136-145); Troponin High Sensitivity 9.1 pg/mL (<58.9)
[2024-08-16 16:26] LABS: C-Reactive Protein < 2.90 mg/L (<3.00)
--- NOTE | 2024-08-16 16:46 | RAD REPORT ---
Procedure: Chest Single View HISTORY: Cough COMPARISON: 2023 FINDINGS: The lungs appear clear of acute infiltrate. No significant pleural effusion noted. The heart is normal size. IMPRESSION: No acute abnormality is displayed.
--- NOTE | 2024-08-16 16:52 | EDPHYS ---
Physician Documentation [facility] Name: Sea Ch Age: 84 yrs Sex: Male : 1940 Arrival Date: 08/16/2024 Time: 15:03 Bed 18 Private MD: ED Physician Will Tang HPI: 08/16 15:21 This 84 yrs old Male presents to ER via Unassigned with complaints of Altered jace Mental Status. 15:21 The patient presents with trouble concentrating. Onset: The symptoms/episode jace began/occurred this morning, at 10:00. Possible causes: CVA or TIA, low blood sugar, seizure, unknown. Associated signs and symptoms: Pertinent positives: gait abnormality. Current symptoms: In the emergency department the patient's symptoms are unchanged from the initial presentation, despite home interventions, despite EMS interventions. Patient's baseline: Neuro: alert and fully oriented. It is unknown whether or not the patient has had similar symptoms in the past. Historical: - Allergies: 15:21 No Known Allergies; iw - Home Meds: 15:23 tamsulosin 0.4 mg oral capsule daily [Active]; metoprolol succinate 50 mg oral Tablet, iw Extended Release 24 hr daily [Active]; clopidogrel 75 mg oral tablet [Active]; aspirin 81 mg Oral capsule daily [Active]; Vitamin B-12 1,000 mcg Oral tablet daily [Active]; amlodipine 5 mg tablet daily [Active]; atorvastatin 40 mg oral tablet daily [Active]; memantine 5 mg oral tablet 2 tabs every evening [Active]; olmesartan-hydrochlorothiazide 40-12.5 mg oral tablet daily [Active]; - PMHx: 15:21 Dementia; Hypertensive disorder; CVA; Myocardial infarction; iw - Immunization history:: Adult Immunizations up to date. - Infectious Disease History:: Denies. - Social history:: Smoking status: Patient denies any tobacco usage or history of. ROS: 15:25 Constitutional: Negative for fever, chills, and weight loss, Eyes: Negative for injury, jace pain, redness, and discharge, ENT: Negative for injury, pain, and discharge, Neck: Negative for injury, pain, and swelling, Cardiovascular: Negative for chest pain, palpitations, and edema, Respiratory: Negative for shortness of breath, cough, wheezing, and pleuritic chest pain, Abdomen/GI: Negative for abdominal pain, nausea, vomiting, diarrhea, and constipation, Back: Negative for injury and pain, : Negative for injury, bleeding, discharge, and swelling, MS/Extremity: Negative for injury and deformity, Skin: Negative for injury, rash, and discoloration, Psych: Negative for depression, anxiety, suicide ideation, homicidal ideation, and hallucinations, Allergy/Immunology: Negative for hives, rash, and allergies, Endocrine: Negative for neck swelling, polydipsia, polyuria, polyphagia, and marked weight changes, Hematologic/Lymphatic: Negative for swollen nodes, abnormal bleeding, and unusual bruising, 15:25 Neuro: Positive for altered mental status, gait disturbance, Exam: 15:25 Constitutional: This is a well developed, well nourished patient who is awake, alert, jace and in no acute distress. Head/Face: Normocephalic, atraumatic. Eyes: Pupils equal round and reactive to light, extra-ocular motions intact. Lids and lashes normal. Conjunctiva and sclera are non-icteric and not injected. Cornea within normal limits. Periorbital areas with no swelling, redness, or edema. ENT: Nares patent. No nasal discharge, no septal abnormalities noted. Tympanic membranes are normal and external auditory canals are clear. Oropharynx with no redness, swelling, or masses, exudates, or evidence of obstruction, uvula midline. Mucous membranes moist. Neck: Trachea midline, no thyromegaly or masses palpated, and no cervical lymphadenopathy. Supple, full range of motion without nuchal rigidity, or vertebral point tenderness. No Meningismus. Chest/axilla: Normal chest wall appearance and motion. Nontender with no deformity. No lesions are appreciated. Cardiovascular: Regular rate and rhythm with a normal S1 and S2. No gallops, murmurs, or rubs. Normal PMI, no JVD. No pulse deficits. Respiratory: Lungs have equal breath sounds bilaterally, clear to auscultation and percussion. No rales, rhonchi or wheezes noted. No increased work of breathing, no retractions or nasal flaring. Abdomen/GI: Soft, non-tender, with normal bowel sounds. No distension or tympany. No guarding or rebound. No evidence of tenderness throughout. Back: No spinal tenderness. No costovertebral tenderness. Full range of motion. Male : Normal genitalia with no discharge or lesions. Skin: Warm, dry with normal turgor. Normal color with no rashes, no lesions, and no evidence of cellulitis. MS/ Extremity: Pulses equal, no cyanosis. Neurovascular intact. Full, normal range of motion., bilateral aka Neuro: Awake and alert, GCS 15, oriented to person, place, time, and situation. Cranial nerves II-XII grossly intact. Motor strength 5/5 in all extremities. Sensory grossly intact. Cerebellar exam normal. Normal gait. Psych: Awake, alert, with orientation to person, place and time. Behavior, mood, and affect are within normal limits. 15:28 Radiologist reports: see reports [facility] 15: Constitutional: The patient appears alert, 15:28 Head/face: Exam is negative for acute changes, 16:32 ECG was reviewed by the Attending Physician. jace 16:37 ECG was reviewed by the Attending Physician. [facility] Vital Signs: 15:22 BP 133 / 67; Pulse 76; Resp 16; Temp 97.7; Pulse Ox 100% on R/A; iw 18:00 BP 141 / 75; Pulse 81; Resp 18; Pulse Ox 100% ; bp NIH Stroke Scale Scores: 15:20 NIHSS Score: 3 bp 15:25 NIHSS Score: 4 jace MDM: 15:06 Medical Screening Exam initiated jace 15:27 Differential diagnosis: CVA, TIA, Dementia, Alzheimer disease, Parkinson disease, jace metabolic disorder, drug effects. TNKase (Tenecteplase) Screening: Contraindications: Patient reports onset of signs and symptoms of stroke greater than 6 hours ago: Yes. Data reviewed: vital signs, nurses notes. Consideration of Admission/Observation Patient was admitted/placed on observation. Escalation of care including admission/observation considered. I considered the following discharge prescriptions or medication management in the emergency department Medications were administered in the Emergency Department. See MAR. Independent interpretation of the following test(s) in the Emergency Department EKG: See my EKG interpretation above CT Scan: My interpretation is ct/cta's. 08/16 15: Order name: Basic Metabolic Panel; Complete Time: 16:31 [facility] 08/16 15:21 Order name: CBC with Diff; Complete Time: 16:20 [facility] 08/16 15: Order name: LFT's; Complete Time: 16:31 08/16 15:21 Order name: Magnesium; Complete Time: 16:31 08/16 15:21 Order name: NT PRO-BNP; Complete Time: 16:31 08/16 15:21 Order name: PT-INR; Complete Time: 16:20 08/16 15:21 Order name: Troponin HS; Complete Time: 16:31 08/16 15:21 Order name: CRP; Complete Time: 16:31 08/16 15:21 Order name: XRAY Chest (1 view); Complete Time: 18:03 08/16 15:21 Order name: CT Stroke Brain w/o Contrast; Complete Time: 15:58 08/16 15:21 Order name: CT Head Angio; Complete Time: 15:58 08/16 15:21 Order name: CT Neck Angio; Complete Time: 15:58 08/16 16:31 Order name: US Rp Exam Complete; Complete Time: 18:03 08/16 15:21 Order name: EKG; Complete Time: 15:21 08/16 15:21 Order name: Cardiac monitoring; Complete Time: 15:31 08/16 15:21 Order name: EKG - Nurse/Tech; Complete Time: 15:31 08/16 15:21 Order name: IV Saline Lock; Complete Time: 16:03 08/16 15:21 Order name: Labs collected and sent; Complete Time: 16:03 08/16 15:21 Order name: O2 Per Protocol; Complete Time: 15:31 08/16 15:21 Order name: O2 Sat Monitoring; Complete Time: 15:31 [facility] EC:37 Rate is 67 beats/min. Rhythm is regular. QRS [place] is Normal. ME interval is shortened jace at 100 msec. QRS interval is normal. QT interval is normal. No Q waves. T waves are Normal. No ST changes noted. Clinical impression: NSR w/ Non-specific ST/T Changes and No evidence of ischemia. Interpreted by me. Reviewed by me. Administered Medications: 15:45 Drug: NS 0.9% IV 1000 ml IV at 1 bolus Per protocol; to be given as a bolus over 60 bp minutes Route: IV; Rate: 1 bolus; Site: right antecubital; 19:00 Follow up: IV Status: Completed infusion; IV Intake: 1000ml bp 16:14 Drug: Meclizine PO 50 mg PO once Route: PO; bp 19:00 Follow up: Response: No adverse reaction bp 16:14 Drug: Aspirin PO Chewable Tablet 81 mg PO once Route: PO; bp 19:00 Follow up: Response: No adverse reaction bp 16:15 Drug: foLIC Acid IVPB 1 mg IVPB once Route: IVPB; Site: right antecubital; bp 19:00 Follow up: IV Status: Completed infusion bp 17:00 Drug: Mucomyst - Acetylcysteine PO 600 mg PO once Route: PO; bp 19:00 Follow up: Response: No adverse reaction bp 17:00 Drug: NS 0.9% IV 1000 ml IV at 1000 ml once; to be given as a bolus over 60 minutes bp Route: IV; Rate: 1000 ml; Site: right antecubital; 19:00 Follow up: IV Status: Completed infusion; IV Intake: 1000ml bp Disposition Summary: 08/16/24 16:52 Discharge Ordered Notes: Location: Home jace Problem: new jace Symptoms: have improved jace Condition: Stable jace Diagnosis - Weakness jace - Dementia in other diseases classified 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 behavioral disturbance jace - Aphasia - hx of jace - Chronic kidney disease, unspecified jace Followup: jace - With: Private Physician - When: 2 - 3 days - Reason: Recheck today's complaints, Continuance of care, Re-evaluation by your physician Followup: jace - With: Dagoberto Montero MD - When: 2 - 3 days - Reason: Recheck today's complaints, Continuance of care, Re-evaluation by your physician Discharge Instructions: - Discharge Summary Sheet jace - Dementia jace - Weakness jace - Aphasia jace - Fatigue jace - Weakness, [id number] jace - Aspirin and Your Heart jace - Chronic Kidney Disease, Adult, [id number] jace - Chronic Kidney Disease, Adult jace - Deconditioning jace - Mild Neurocognitive Disorder jace Forms: - Medication Reconciliation Form jace - Antibiotic Education jace - Prescription Opioid Use jace - Patient Portal Instructions [facility] - Leadership Thank You Letter [facility] Prescriptions: - Meclizine 25 mg Oral Tablet - take 1 tablet ORAL route every 8 hours As needed; 30 tablet; Refills: 0, jace Product Selection Permitted - Plavix 75 mg Oral Tablet - take 1 tablet ORAL route once daily; 20 tablet; Refills: 0, Product Selection jace Permitted - Folic Acid 1 mg Oral Tablet - take 1 tablet ORAL route once daily; 30 tablet; Refills: 0, Product Selection jace Permitted NIH Stroke Scale - NIH Stroke Score Date: 08/16/2024 Time: 15:20 Total Score = 3 10. Dysarthria (speech clarity - read or repeat words) - 0(Normal) 11. Extinction and Inattention (visual/tactile/auditory/spatial/personal) - 0(No abnormality) 1a. Level of Consciousness (LOC) - 0(Alert) 1b. Level of Consciousness (LOC) (Month \T\ Age) - 1(One) 1c. LOC Commands (Open \T\ Closes Eyes/Floral Designer) - 0(Both) 2. Best Gaze (Lateral Gaze Paresis) - 0(Normal) 3. Visual Field Loss - 0(No visual loss) 4. Facial Palsy - 0(Normal) 5a. Left Arm: Motor (10-second hold) - 0(No drift) 5b. Right Arm: Motor (10-second hold) - 0(No drift) 6a. Left Leg: Motor (5-second hold - always test supine) - 0(No drift) 6b. Right Leg: Motor (5-second hold - always test supine) - 0(No drift) 7. Limb Ataxia (finger/nose \T\ heel/perry - test with eyes open) - 0(Absent) 8. Sensory Loss (pinprick arms/legs/face) - 0(Normal) 9. Best Language: Aphasia (description/naming/reading) - 2(Severe aphasia) Initials: bp NIH Stroke Scale - NIH Stroke Score Date: 08/16/2024 Time: 15:25 Total Score = 4 10. Dysarthria (speech clarity - read or repeat words) - 1(Mild to Moderate) 11. Extinction and Inattention (visual/tactile/auditory/spatial/personal) - 0(No abnormality) 1a. Level of Consciousness (LOC) - 0(Alert) 1b. Level of Consciousness (LOC) (Month \T\ Age) - 0(Both) 1c. LOC Commands (Open \T\ Closes Eyes/Floral Designer) - 0(Both) 2. Best Gaze (Lateral Gaze Paresis) - 0(Normal) 3. Visual Field Loss - 0(No visual loss) 4. Facial Palsy - 0(Normal) 5a. Left Arm: Motor (10-second hold) - 0(No drift) 5b. Right Arm: Motor (10-second hold) - 0(No drift) 6a. Left Leg: Motor (5-second hold - always test supine) - 0(No drift) 6b. Right Leg: Motor (5-second hold - always test supine) - 0(No drift) 7. Limb Ataxia (finger/nose \T\ heel/perry - test with eyes open) - 2(Present in two limbs) 8. Sensory Loss (pinprick arms/legs/face) - 0(Normal) 9. Best Language: Aphasia (description/naming/reading) - 1(Mild to moderate aphasia) Initials: jace Signatures: Dispatcher [employer] EDMS Will Tang MD MD cha Williams, Irene, LALO MAY iw Roger Fuentes RN RN bp Corrections: (The following items were deleted from the chart) 15:22 15:21 BASIC METABOLIC PANEL+C.LAB.BRZ ordered. EDMS EDMS 15:22 15:21 CBC+H.LAB.BRZ ordered. EDMS EDMS 15:22 15:21 HEPATIC FUNCTION+C.LAB.BRZ ordered. EDMS EDMS 15:22 15:21 MAGNESIUM+C.LAB.BRZ ordered. EDMS EDMS 15:22 15:21 PROBNP+C.LAB.BRZ ordered. EDMS EDMS 15:22 15:21 PROTIME (+INR)+COAG.LAB.BRZ ordered. EDMS EDMS 15:22 15:21 Troponin High Sensitivity+C.LAB.BRZ ordered. EDMS EDMS 15:22 15:21 Urinalysis+U.LAB.BRZ ordered. EDMS EDMS 15:22 15:21 C-REACTIVE PROTEIN+C.LAB.BRZ ordered. EDMS EDMS 15:22 15:22 Neck Angio+CT.RAD.BRZ ordered. EDMS EDMS
--- NOTE | 2024-08-16 16:52 | ER ---
Nurse's Notes [facility] Name: Sea Ch Age: 84 yrs Sex: Male : 1940 Arrival Date: 08/16/2024 Time: 15:03 Bed 18 Private MD: Diagnosis: Weakness;Dementia in other diseases classified 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 behavioral disturbance;Aphasia-hx of;Chronic kidney disease, unspecified Presentation: 08/16 15:20 Chief complaint: Parent and/or Guardian states: he called me about an hour ago saying iw he felt weak, he has a aphasia and it's hard to understand what's going on, he seems to be unsteady , last normal was at 10 am today. 15:20 Acuity: JANIE 2 iw Triage Assessment: 15:20 General: Appears in no apparent distress. Behavior is anxious. Pain: Denies pain. EENT: bp No deficits noted. Neuro: Level of Consciousness is awake, alert, obeys commands, Oriented to person, place, time, Speech with expressive aphasia noted, AT BASELINE. Cardiovascular: No deficits noted. Respiratory: No deficits noted. GI: No signs and/or symptoms were reported involving the gastrointestinal system. : No signs and/or symptoms were reported regarding the genitourinary system. Derm: No deficits noted. Musculoskeletal: No deficits noted. Historical: - Allergies: 15:21 No Known Allergies; iw - Home Meds: 15:23 tamsulosin 0.4 mg oral capsule daily [Active]; metoprolol succinate 50 mg oral Tablet, iw Extended Release 24 hr daily [Active]; clopidogrel 75 mg oral tablet [Active]; aspirin 81 mg Oral capsule daily [Active]; Vitamin B-12 1,000 mcg Oral tablet daily [Active]; amlodipine 5 mg tablet daily [Active]; atorvastatin 40 mg oral tablet daily [Active]; memantine 5 mg oral tablet 2 tabs every evening [Active]; olmesartan-hydrochlorothiazide 40-12.5 mg oral tablet daily [Active]; - PMHx: 15:21 Dementia; Hypertensive disorder; CVA; Myocardial infarction; iw - Immunization history:: Adult Immunizations up to date. - Infectious Disease History:: Denies. - Social history:: Smoking status: Patient denies any tobacco usage or history of. Screenin:45 [facility] ED Fall Risk Assessment (Adult) History of falling in the last 3 months, bp including since admission No falls in past 3 months (0 pts) Confusion or Disorientation Yes (5 pts) Intoxicated or Sedated No (0 pts) Impaired Gait No (0 pts) Mobility Assist Device Used No (0 pt) Altered Elimination No (0 pt) Score/Fall Risk Level 0 - 2 = Low Risk Oriented to surroundings. Abuse screen: Denies threats or abuse. Denies injuries from another. Nutritional screening: No deficits noted. Tuberculosis screening: No symptoms or risk factors identified. Assessment: 15:45 Reassessment: RETURNED FROM CT. bp 18:00 Reassessment: DC ON HOLD FOR IV FLUID. bp Vital Signs: 15:22 BP 133 / 67; Pulse 76; Resp 16; Temp 97.7; Pulse Ox 100% on R/A; iw 18:00 BP 141 / 75; Pulse 81; Resp 18; Pulse Ox 100% ; bp NIH Stroke Scale Scores: 15:20 NIHSS Score: 3 bp 15:25 NIHSS Score: 4 jace ED Course: 15:04 Patient arrived in ED. im 15:06 Will Tang MD is Attending Physician. jace 15:07 Roger Fuentes, LALO is Primary Nurse. bp 15:15 Initial lab(s) drawn, by me. Inserted saline lock: 20 gauge in right antecubital area, iw using aseptic technique. Blood collected. Flushed with 10 mL NS. 15:21 Triage completed. iw 15:22 Arm band placed on. iw 15:35 CT Stroke Brain w/o Contrast In Process Unspecified. EDMS 15:35 CT Head Angio In Process Unspecified. EDMS 15:36 CT Neck Angio In Process Unspecified. EDMS 15:45 Patient has correct armband on for positive identification. bp 16:30 XRAY Chest (1 view) In Process Unspecified. EDMS 16:52 Dagoberto Montero MD is Referral Physician. jace 17:11 US Rp Exam Complete In Process Unspecified. EDMS 19:18 IV discontinued, bleeding controlled, No redness/swelling at site. Pressure dressing bp applied. Administered Medications: 15:45 Drug: NS 0.9% IV 1000 ml IV at 1 bolus Per protocol; to be given as a bolus over 60 bp minutes Route: IV; Rate: 1 bolus; Site: right antecubital; 19:00 Follow up: IV Status: Completed infusion; IV Intake: 1000ml bp 16:14 Drug: Meclizine PO 50 mg PO once Route: PO; bp 19:00 Follow up: Response: No adverse reaction bp 16:14 Drug: Aspirin PO Chewable Tablet 81 mg PO once Route: PO; bp 19:00 Follow up: Response: No adverse reaction bp 16:15 Drug: foLIC Acid IVPB 1 mg IVPB once Route: IVPB; Site: right antecubital; bp 19:00 Follow up: IV Status: Completed infusion bp 17:00 Drug: Mucomyst - Acetylcysteine PO 600 mg PO once Route: PO; bp 19:00 Follow up: Response: No adverse reaction bp 17:00 Drug: NS 0.9% IV 1000 ml IV at 1000 ml once; to be given as a bolus over 60 minutes bp Route: IV; Rate: 1000 ml; Site: right antecubital; 19:00 Follow up: IV Status: Completed infusion; IV Intake: 1000ml bp Medication: 15:45 VIS not applicable for this client. bp Intake: 19:00 IV: 1000ml; Total: 1000ml. bp 19:00 IV: 1000ml; Total: 2000ml. bp Outcome: 16:52 Discharge ordered by MD. jace 19:18 Discharged to home via wheelchair, bp 19:18 Condition: stable 19:18 Discharge instructions given to patient, family, Instructed on discharge instructions, follow up and referral plans. Demonstrated understanding of instructions, follow-up care, medications, Prescriptions given X 2, 19:21 Patient left the ED. bp NIH Stroke Scale - NIH Stroke Score Date: 08/16/2024 Time: 15:20 Total Score = 3 10. Dysarthria (speech clarity - read or repeat words) - 0(Normal) 11. Extinction and Inattention (visual/tactile/auditory/spatial/personal) - 0(No abnormality) 1a. Level of Consciousness (LOC) - 0(Alert) 1b. Level of Consciousness (LOC) (Month \T\ Age) - 1(One) 1c. LOC Commands (Open \T\ Closes Eyes/Biomass Power Plant Manager) - 0(Both) 2. Best Gaze (Lateral Gaze Paresis) - 0(Normal) 3. Visual Field Loss - 0(No visual loss) 4. Facial Palsy - 0(Normal) 5a. Left Arm: Motor (10-second hold) - 0(No drift) 5b. Right Arm: Motor (10-second hold) - 0(No drift) 6a. Left Leg: Motor (5-second hold - always test supine) - 0(No drift) 6b. Right Leg: Motor (5-second hold - always test supine) - 0(No drift) 7. Limb Ataxia (finger/nose \T\ heel/perry - test with eyes open) - 0(Absent) 8. Sensory Loss (pinprick arms/legs/face) - 0(Normal) 9. Best Language: Aphasia (description/naming/reading) - 2(Severe aphasia) Initials: bp NIH Stroke Scale - NIH Stroke Score Date: 08/16/2024 Time: 15:25 Total Score = 4 10. Dysarthria (speech clarity - read or repeat words) - 1(Mild to Moderate) 11. Extinction and Inattention (visual/tactile/auditory/spatial/personal) - 0(No abnormality) 1a. Level of Consciousness (LOC) - 0(Alert) 1b. Level of Consciousness (LOC) (Month \T\ Age) - 0(Both) 1c. LOC Commands (Open \T\ Closes Eyes/Biomass Power Plant Manager) - 0(Both) 2. Best Gaze (Lateral Gaze Paresis) - 0(Normal) 3. Visual Field Loss - 0(No visual loss) 4. Facial Palsy - 0(Normal) 5a. Left Arm: Motor (10-second hold) - 0(No drift) 5b. Right Arm: Motor (10-second hold) - 0(No drift) 6a. Left Leg: Motor (5-second hold - always test supine) - 0(No drift) 6b. Right Leg: Motor (5-second hold - always test supine) - 0(No drift) 7. Limb Ataxia (finger/nose \T\ heel/perry - test with eyes open) - 2(Present in two limbs) 8. Sensory Loss (pinprick arms/legs/face) - 0(Normal) 9. Best Language: Aphasia (description/naming/reading) - 1(Mild to moderate aphasia) Initials: jace Signatures: Dispatcher [employer] Will Nichols MD MD cha Williams, Irene, RN RN iw Peltier, Brian, RN RN bp Mendoza, Itzel im
[2024-08-16] MEDS ORDERED: Acetylcysteine 6000mg/30mL IV ONE (17:28)
--- NOTE | 2024-08-16 18:00 | RAD REPORT ---
EXAMINATION: US RENAL CLINICAL INDICATION: Abdominal pain TECHNIQUE: Real-time ultrasonography of the kidneys performed. COMPARISON: 2023 CT FINDINGS: Right kidney measures 9 cm with a normal echotexture. Left kidney measures 9 cm with normal echotexture. No hydronephrosis No gross abnormality bladder. IMPRESSION: No significant abnormalities displayed
[2024-08-16 19:25] VITALS: TEMP 97.7; O2SAT 100
[2024-08-16 19:27] VITALS: BP 141/75
--- NOTE | 2024-08-17 11:57 | EKG ---
Test Date: 2024-08-16 Test Time: 16:33:20 Reach Truck Operator: JAREN MEASUREMENT RESULTS: Intervals: Rate: 67 AK: 100 QRSD: 102 QT: 432 QTc: 456 [place]: P: 27 AK: 100 QRS: -37 T: 57 INTERPRETIVE STATEMENTS: Sinus rhythm with short AK with occasional premature ventricular complexes Left axis deviation Abnormal ECG Compared to ECG 03/13/2024 12:38:33 Short AK interval now present Electronically Signed On 08-17-24 11:56:29 PROGRAM MANAGER EN[employer]IRONMENTAL PLANNING by Luis Eduardo River
== END 2024-08-16 19:21 | disposition home or self-care (01) ==
LOC: ER 15:03
DX: R53.1 Weakness (principal); F02.80 Dementia in other diseases classified elsewhere, unspecified severity, without behavioral disturbance, psychotic disturbance, mood disturbance, and anxiety; R47.01 Aphasia; I12.9 Hypertensive chronic kidney disease with stage 1 through stage 4 chronic kidney disease, or unspecified chronic kidney disease; N18.9 Chronic kidney disease, unspecified; Z79.82 Long term (current) use of aspirin
CPT/HCPCS: 96365; 93005; 85025; 80048; 36415; 83735; 85610; 80076; 84484; 83880; 86140; 70496; 70498; 70450; 71045; 76770; 99285; 96366; Q9967; J8597; J0132; J7030 ×2